=== PATIENT | male | born 1980 | race Caucasian/White ===

== ENCOUNTER 2019-05-21 16:21 | Emergency (ER) | payer BC, OTHER ==
--- NOTE | 2019-05-21 16:41 | ER Document Report ---
ED Medical Screen (RME) - General Chief Complaint: Dizziness Stated Complaint: HEADACHE,DIZZINESS Time Seen by Provider: 05/21/19 16:35 Primary Care Provider: REZA ALFONSO MD [Primary Care Provider] - Follow up as needed Mode of Arrival: Ambulatory Information source: Patient Notes: Patient presents complaining of headache pain for the past week with dizziness. Patient does complain of some nausea. Patient states that he has had some chest tightness for the past 2 days with shortness of breath as well. Patient does report elevated blood pressure although does not take any medication for this. Patient was seen in urgent care last week and diagnosed with vertigo and given a prescription for meclizine. Patient additionally reports falling off of an excavator from a height of about 4 foot. Patient states the fall occurred about 3 weeks ago. I have greeted and performed a rapid initial assessment of this patient. A comprehensive ED assessment and evaluation of the patient, analysis of test results and completion of the medical decision making process will be conducted by additional ED providers. Physical Exam - Vital signs Vitals: Temp Pulse Resp BP Pulse Ox 97.6 F 95 24 H 182/104 H 94 05/21/19 16:23 05/21/19 16:23 05/21/19 16:23 05/21/19 16:23 05/21/19 16:23 - Neurological Neuro grossly intact: Yes Cognition: Normal Eek Coma Scale Eye Opening: Spontaneous Eek Coma Scale Verbal: Oriented Lani Coma Scale Motor: Obeys Commands Eek Coma Scale Total: 15 Speech: Normal. No: Dysarthria Course - Vital Signs Vital signs: Temp Pulse Resp BP Pulse Ox 97.6 F 95 24 H 182/104 H 94 05/21/19 16:23 05/21/19 16:23 05/21/19 16:23 05/21/19 16:23 05/21/19 16:23 Doctor's Discharge - Discharge Referrals: REZA ALFONSO MD [Primary Care Provider] - Follow up as needed
--- NOTE | 2019-05-21 17:05 | RADIOLOGY REPORT (SQ) ---
EXAM DESCRIPTION: CHEST 2 VIEWS COMPLETED DATE/TIME: 05/21/2019 4:56 pm REASON FOR STUDY: cp, sob, dizzy COMPARISON: None. EXAM PARAMETERS: NUMBER OF VIEWS: two views TECHNIQUE: Digital Frontal and Lateral radiographic views of the chest acquired. RADIATION DOSE: NA LIMITATIONS: none FINDINGS: LUNGS AND PLEURA: No opacities, masses or pneumothorax. No pleural effusion. MEDIASTINUM AND HILAR STRUCTURES: No masses or contour abnormalities. HEART AND VASCULAR STRUCTURES: Heart normal size. No evidence for failure. BONES: No acute findings. HARDWARE: None in the chest. OTHER: No other significant finding. IMPRESSION: NO ACUTE RADIOGRAPHIC FINDING IN THE CHEST. TECHNICAL DOCUMENTATION: JOB ID: [id number] [employer]- All Rights Reserved Reading location - IP/workstation name: [email or web address]
[2019-05-21 17:24] LABS: ABSOLUTE BASOPHILS # (AUTO) 0.1 10^3/uL (0.0-0.2); ABSOLUTE EOSINOPHILS # (AUTO) 0.4 10^3/uL (0.0-0.6); ABSOLUTE LYMPHOCYTES (AUTO) 4.3 10^3/uL (0.5-4.7); EOSINOPHILS % (AUTO) 2.8 % (0-6); HEMATOCRIT 45.6 % (37.9-51.0); HEMOGLOBIN 15.5 g/dL (13.5-17.0); LYMPHOCYTES % (AUTO) 33.8 % (13-45); MEAN CORPUSCULAR HEMOGLOBIN 30.6 pg (27.0-33.4); MEAN CORPUSCULAR HGB CONC 33.9 g/dL (32.0-36.0); MEAN CORPUSCULAR VOLUME 90 fl (80-97); PLATELET COUNT 342 10^3/uL (150-450); RED BLOOD COUNT 5.06 10^6/uL (4.35-5.55); RED CELL DISTRIBUTION WIDTH 13.5 % (11.5-14.0); SEGMENTED NEUTROPHILS % (AUTO) 54.4 % (42-78); TOTAL CELLS COUNTED % (AUTO) 100 %; WHITE BLOOD COUNT 12.8 10^3/uL (4.0-10.5)
[2019-05-21 17:29] LABS: APPEARANCE,URINE SLIGHTLY-CLOUDY; BILIRUBIN,URINE NEGATIVE (NEGATIVE); COLOR,URINE YELLOW; GLUCOSE, URINE NEGATIVE (NEGATIVE); KETONES,URINE NEGATIVE (NEGATIVE); LEUKOCYTE ESTERASE,URINE NEGATIVE (NEGATIVE); NITRITE,URINE NEGATIVE (NEGATIVE); PROTEIN,URINE 30 mg/dL (NEGATIVE); URINE SPECIFIC GRAVITY 1.025
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
[2019-05-21 17:47] LABS: ALBUMIN 4.4 g/dL (3.5-5.0); ALKALINE PHOSPHATASE 79 U/L (38-126); ANION GAP 11 (5-19); ASPARTATE AMINO TRANSFERASE 38 U/L (17-59); BILIRUBIN,DIRECT 0.1 mg/dL (0.0-0.4); BILIRUBIN,TOTAL 0.6 mg/dL (0.2-1.3); BLOOD UREA NITROGEN 16 mg/dL (7-20); CALCIUM 9.5 mg/dL (8.4-10.2); CARBON DIOXIDE 27 mmol/L (22-30); CHLORIDE 105 mmol/L (98-107); GLUCOSE 94 mg/dL (75-110); POTASSIUM 4.5 mmol/L (3.6-5.0); TOTAL PROTEIN 7.6 g/dL (6.3-8.2)
[2019-05-21 17:56] LABS: NT PRO BNP 284 pg/mL (<125)
[2019-05-21 17:57] LABS: TROPONIN I < 0.012 ng/mL
--- NOTE | 2019-05-21 19:31 | RADIOLOGY REPORT (SQ) ---
EXAM DESCRIPTION: CT HEAD WITHOUT COMPLETED DATE/TIME: 05/21/2019 7:21 pm REASON FOR STUDY: [place], HTN COMPARISON: None. TECHNIQUE: Axial images acquired through the brain without intravenous contrast. Images reviewed wi th bone, brain and subdural windows. Additional sagittal and coronal reconstructions were generated. Images stored on PACS. All CT scanners at this facility use dose modulation, iterative reconstruction, and/or weight based d osing when appropriate to reduce radiation dose to as low as reasonably achievable (ALARA). [facility]: Dose Right [facility]: CareDose [facility]: Dose Right [facility]: Teradose 4D [facility]: Smart TEXbase RADIATION DOSE: CT Rad equipment meets quality standard of care and radiation dose reduction techniq ues were employed. CTDIvol: 53.2 mGy. DLP: 964 mGy-cm. mGy. LIMITATIONS: None. FINDINGS: VENTRICLES: Normal size and contour. CEREBRUM: No masses. No hemorrhage. No midline shift. No evidence for acute infarction. Normal gra y/white matter differentiation. No areas of low density in the white matter. CEREBELLUM: No masses. No hemorrhage. No alteration of density. No evidence for acute infarction. EXTRAAXIAL SPACES: No fluid collections. No masses. ORBITS AND GLOBE: No intra- or extraconal masses. Normal contour of globe without masses. CALVARIUM: No fracture. PARANASAL SINUSES: No fluid or mucosal thickening. SOFT TISSUES: No mass or hematoma. OTHER: No other significant finding. IMPRESSION: NORMAL BRAIN CT WITHOUT CONTRAST. EVIDENCE OF ACUTE STROKE: NO. COMMENT: Quality ID # [id number]: Final reports with documentation of one or more dose reduction techniques (e.g., Automated exposure control, adjustment of the mA and/or kV according to patient size, use of iterative reconstruction technique) TECHNICAL DOCUMENTATION: JOB ID: [id number] [employer]- All Rights Reserved Reading location - IP/workstation name: [facility]
[2019-05-21 20:09] VITALS: BP 162/102
--- NOTE | 2019-05-21 23:39 | EKG REPORT ---
SEVERITY:- ABNORMAL ECG - SINUS TACHYCARDIA LEFT BUNDLE BRANCH BLOCK : Confirmed by: Mathieu Bruno 21-May-2019 23:38:46
== END 2019-05-21 19:58 | disposition home or self-care (01) ==
LOC: ER 16:21
DX: F07.81 Postconcussional syndrome (principal); R42 Dizziness and giddiness; R51 Headache; S90.512A Abrasion, left ankle, initial encounter; W19.XXXA Unspecified fall, initial encounter; Y93.39 Activity, other involving climbing, rappelling and jumping off; E66.01 Morbid (severe) obesity due to excess calories; G47.33 Obstructive sleep apnea (adult) (pediatric); R03.0 Elevated blood-pressure reading, without diagnosis of hypertension; R06.09 Other forms of dyspnea; I44.7 Left bundle-branch block, unspecified; Z79.899 Other long term (current) drug therapy; Z79.1 Long term (current) use of non-steroidal anti-inflammatories (NSAID)
CPT/HCPCS: 36415; 70450; 71046; 80053; 81001; 83880; 84484; 85025; 93005; 93010; 99284

== ENCOUNTER 2019-06-29 00:22 | Emergency (ER) | payer SELFPAY ==
--- NOTE | 2019-06-29 02:50 | RADIOLOGY REPORT (SQ) ---
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 COMPARISON: None. FINDINGS: No acute fracture or dislocation is seen. The joint spaces are preserved. No radiopaque foreign body is identified. The surrounding soft tissues are swollen. IMPRESSION: Diffuse foot swelling without fracture or foreign body.
--- NOTE | 2019-06-29 02:52 | RADIOLOGY REPORT (SQ) ---
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 COMPARISON: None. FINDINGS: No acute fracture or dislocation is seen. The joint spaces are preserved. No radiopaque foreign body is identified. The surrounding soft tissues are diffusely swollen. IMPRESSION: Diffuse ankle swelling without fracture or malalignment.
--- NOTE | 2019-06-29 03:29 | ER Document Report ---
ED Extremity Problem, Lower - General Chief Complaint: Foot Injury Stated Complaint: LEFT FOOT INJURY Time Seen by Provider: 06/29/19 02:46 Mode of Arrival: Ambulatory Information source: Patient TRAVEL OUTSIDE OF THE [place] IN LAST 30 DAYS: No - HPI Notes: Patient states he was playing with a 6-year-old child when he planted his foot and felt a sudden sharp pain in the left foot. He states his pain is about the ankle and the foot. It is worse with bearing weight and better with rest. It does show radiate up his left leg. It is sharp and severe. It is constant but waxes and wanes in intensity. He states he also heard a loud pop when the pain started. He denies any other injuries. - Related Data Allergies/Adverse Reactions: No Known Allergies Allergy (Unverified 05/21/19 18:17) Home Medications: prilosec qday Past Medical History - General Information source: Patient - Social History Smoking Status: Never Smoker Frequency of alcohol use: None Drug Abuse: None Family History: Reviewed & Not Pertinent Patient has suicidal ideation: No Patient has homicidal ideation: No - Past Medical History Cardiac Medical History: Reports: Hx Hypercholesterolemia Past Surgical History: Reports: Hx Tonsillectomy Review of Systems - Review of Systems Constitutional: denies: Chills, Fever Cardiovascular: denies: Chest pain, Palpitations Respiratory: denies: Cough, Short of breath -: Yes All other systems reviewed and negative Physical Exam - Vital signs Vitals: Temp Pulse Resp BP Pulse Ox 97.6 F 100 20 122/71 92 06/29/19 00:33 06/29/19 00:33 06/29/19 00:33 06/29/19 00:33 06/29/19 00:33 Interpretation: Normal - General General appearance: Appears well, Alert - HEENT Head: Normocephalic, Atraumatic Eyes: Normal Pupils: PERRL - Respiratory Respiratory status: No respiratory distress Chest status: Nontender Breath sounds: Normal Chest palpation: Normal - Cardiovascular Rhythm: Regular Heart sounds: Normal auscultation Murmur: No - Abdominal Inspection: Normal Distension: No distension Bowel sounds: Normal Tenderness: Nontender Organomegaly: No organomegaly - Back Back: Normal, Nontender - Extremities General upper extremity: Normal inspection, Nontender, Normal color, Normal ROM, Normal temperature General lower extremity: Tender - Left foot and ankle have some diffuse swelling. He is also tender diffusely about the foot and left ankle although the most significant pain appears to be with palpation of the midfoot between the first and second metatarsals. He has good capillary refill in all toes of the left foot. He has a good dorsalis pedis pulse on the left.. No: Asif's sign - Neurological Neuro grossly intact: Yes Cognition: Normal Orientation: AAOx4 Bang[place] Coma Scale Eye Opening: Spontaneous Lani Coma Scale Verbal: Oriented [place] Coma Scale Motor: Obeys Commands Lani Coma Scale Total: 15 Speech: Normal Motor strength normal: LUE, RUE, LLE, RLE Sensory: Normal - Psychological Associated symptoms: Normal affect, Normal mood - Skin Skin Temperature: Warm Skin Moisture: Dry Skin Color: Normal Course - Re-evaluation Re-evalutation: 06/29/19 03:26 Patient has no evidence of fracture. It appears he may have a sprain of the midfoot and patient will refer to orthopedics. - Vital Signs Vital signs: Temp Pulse Resp BP Pulse Ox 97.6 F 100 20 122/71 92 06/29/19 00:33 06/29/19 00:33 06/29/19 00:33 06/29/19 00:33 06/29/19 00:33 - Diagnostic Test Radiology reviewed: Image reviewed, Reports reviewed Procedures - Immobilization Left Foot Time completed: 03:27 Pre-Proc Neuro Vasc Exam: Normal Immobilizer type: Post-op shoe Performed by: ROSE Post-Proc Neuro Vasc Exam: Normal Alignment checked and good: Yes Discharge - Discharge Clinical Impression: Sprain of foot, unspecified site Qualifiers: Encounter type: initial encounter Laterality: left Qualified Code(s): S93.602A - Unspecified sprain of left foot, initial encounter Condition: Stable Disposition: HOME, SELF-CARE Instructions: Ice Packs ([facility]), Oral Narcotic Medication ([facility]), Sprain ([facility]) Additional Instructions: Please call Dr. Blake as soon as possible to arrange follow-up Prescriptions: Hydrocodone/Acetaminophen [[place] 5-325 mg Tablet] 1 tab PO Q6 PRN 3 Days #12 tablet PRN Reason: Forms: Return to Work Referrals: KALI BLAKE JR, [ACTIVE PROVISIONAL STAFF] - Follow up in 1 week
[2019-06-29] MEDS ORDERED: HYDROCODONE/ACETAMINOPHEN 5-325 MG (6 TAB/ER DISP) PO PRN (03:30)
[2019-06-29 03:51] VITALS: BP 141/92
== END 2019-06-29 03:48 | disposition home or self-care (01) ==
LOC: ER 00:22
DX: S93.602A Unspecified sprain of left foot, initial encounter (principal); X58.XXXA Exposure to other specified factors, initial encounter; E78.00 Pure hypercholesterolemia, unspecified
CPT/HCPCS: 99283

== ENCOUNTER 2019-08-17 03:25 | Inpatient (IN) | payer SELFPAY ==
[2019-08-17] MEDS ORDERED: IPRATROPIUM/ALBUTEROL 0.5-2.5 MG/3 ML AMPUL NEB ONE (03:52)
[2019-08-17 05:41] LABS: ABSOLUTE BASOPHILS # (AUTO) 0.1 10^3/uL (0.0-0.2); ABSOLUTE EOSINOPHILS # (AUTO) 0.3 10^3/uL (0.0-0.6); ABSOLUTE LYMPHOCYTES (AUTO) 3.7 10^3/uL (0.5-4.7); ABSOLUTE MONOCYTES (AUTO) 0.7 10^3/uL (0.1-1.4); ABSOLUTE NEUT (AUTO) 4.7 10^3/uL (1.7-8.2); EOSINOPHILS % (AUTO) 3.5 % (0-6); HEMATOCRIT 41.3 % (37.9-51.0); HEMOGLOBIN 14.1 g/dL (13.5-17.0); LYMPHOCYTES % (AUTO) 38.8 % (13-45); MEAN CORPUSCULAR HEMOGLOBIN 31.1 pg (27.0-33.4); MEAN CORPUSCULAR HGB CONC 34.1 g/dL (32.0-36.0); MEAN CORPUSCULAR VOLUME 91 fl (80-97); MONOCYTES % (AUTO) 7.3 % (3-13); PLATELET COUNT 285 10^3/uL (150-450); RED BLOOD COUNT 4.53 10^6/uL (4.35-5.55); RED CELL DISTRIBUTION WIDTH 14.4 % (11.5-14.0); SEGMENTED NEUTROPHILS % (AUTO) 49.4 % (42-78); TOTAL CELLS COUNTED % (AUTO) 100 %; WHITE BLOOD COUNT 9.4 10^3/uL (4.0-10.5)
[2019-08-17 05:56] LABS: ALBUMIN 3.8 g/dL (3.5-5.0); ALKALINE PHOSPHATASE 67 U/L (38-126); ANION GAP 8 (5-19); ASPARTATE AMINO TRANSFERASE 36 U/L (17-59); BILIRUBIN,TOTAL 0.6 mg/dL (0.2-1.3); BLOOD UREA NITROGEN 16 mg/dL (7-20); CALCIUM 9.2 mg/dL (8.4-10.2); CARBON DIOXIDE 26 mmol/L (22-30); CHLORIDE 105 mmol/L (98-107); GLUCOSE 111 mg/dL (75-110); POTASSIUM 4.1 mmol/L (3.6-5.0); TOTAL PROTEIN 6.4 g/dL (6.3-8.2)
--- NOTE | 2019-08-17 06:01 | RADIOLOGY REPORT (SQ) ---
EXAM DESCRIPTION: XR CHEST 2 VIEWS COMPLETED DATE/TME: 08/17/2019 00:00 CLINICAL HISTORY: SOB COMPARISON: 05/21/2019 FINDINGS: Frontal and lateral views of the chest. Cardiomediastinal silhouette: Normal size and contour. Lungs: Bilateral perihilar interstitial opacities. No pneumothorax or large effusion. Stable elevation the right hemidiaphragm. Bones: Degenerative change of the spine and shoulders. Upper abdomen: No abnormality identified. IMPRESSION: 1. Bilateral perihilar interstitial opacities. These findings could be related to reactive airways disease or interstitial pneumonic process.
[2019-08-17] MEDS ORDERED: FUROSEMIDE INJ/PF 20 MG/2 ML SDV IV ONE ×2 (07:17→12:00)
[2019-08-17 08:10] LABS: TROPONIN I 0.027 ng/mL
--- NOTE | 2019-08-17 08:33 | ER Document Report ---
Entered by DEVORA LÓPEZ SCRIBE 08/17/19 0716 Acting as scribe for:TOMEKA COREA MD ED Respiratory Problem - General Chief Complaint: Shortness Of Breath Stated Complaint: DIFFICULTY BREATHING Time Seen by Provider: 08/17/19 06:56 Information source: Patient Notes: This 38-year-old male patient presents to the emergency department today with complaints of shortness of breath with a nonproductive cough. Patient states his shortness of breath becomes much worse when in a supine position or with any exertion. Patient adds that he has to use several pillows at night to sleep, but has never been diagnosed with CHF. Patient was recently prescribed an albuterol inhaler which he states somewhat helps his breathing. Patient has lower extremity swelling which he states is about at baseline for him. Pertinent PMHx/PSHx: Denies history of CHF - additional PMHx/PSHx not pertinent to this visit as recorded. PCP: none TRAVEL OUTSIDE OF THE [place] IN LAST 30 DAYS: No - Related Data Allergies/Adverse Reactions: No Known Allergies Allergy (Unverified 05/21/19 18:17) Past Medical History - General Information source: Patient, [facility] Records - Social History Smoking Status: Never Smoker Cigarette use (# per day): No Chew tobacco use (# tins/day): No Frequency of alcohol use: None Drug Abuse: None Lives with: Family Family History: Reviewed & Not Pertinent Patient has suicidal ideation: No Patient has homicidal ideation: No GI Medical History: Reports: Hx Gastroesophageal Reflux Disease, Hx Hiatal Hernia Past Surgical History: Reports: Hx Tonsillectomy Review of Systems - Review of Systems Constitutional: No symptoms reported EENT: No symptoms reported Cardiovascular: No symptoms reported Respiratory: See HPI, Cough, Short of breath Gastrointestinal: No symptoms reported Genitourinary: No symptoms reported Male Genitourinary: No symptoms reported Musculoskeletal: See HPI, Leg swelling Skin: No symptoms reported Hematologic/Lymphatic: No symptoms reported Neurological/Psychological: No symptoms reported -: Yes All other systems reviewed and negative Physical Exam - Vital signs Vitals: Temp Pulse Resp BP Pulse Ox 97.3 F 107 H 20 161/117 H 93 08/17/19 03:31 08/17/19 03:31 08/17/19 03:31 08/17/19 03:31 08/17/19 03:31 - Notes Notes: Physical Exam: General: Alert, morbidly obese. HEENT: Normocephalic. Atraumatic. PERRL. Extraocular movements intact. Oropharynx clear. Neck: Supple. Non-tender. Respiratory: Moderate respiratory distress. Saturating 100% on 5L via cannula. Rhonchi, wheezing, and rales bilaterally. Becomes very dyspneic when trying to sit up for lung auscultation. Cardiovascular: Regular rate and rhythm. Abdominal: Morbidly obese. Non-tender. No distension. Normal Bowel Sounds. Back: No gross abnormalities. Extremities: Moves all four extremities. Upper extremities: Normal inspection. Normal ROM. Lower extremities: 1+ pedal edema bilaterally. Neurological: Normal cognition. AAOx4. Normal speech. Psychological: Normal affect. Normal Mood. Skin: Warm. Dry. Normal color. Course - Re-evaluation Re-evalutation: 08/17/19 09:34 Patient has dyspnea on exertion with some lower extremity pitting edema. He has an elevated BNP and a chest x-ray that suggest pulmonary vascular congestion. - Vital Signs Vital signs: Temp Pulse Resp BP Pulse Ox 97.3 F 107 H 19 161/117 H 98 08/17/19 03:31 08/17/19 03:31 08/17/19 07:00 08/17/19 03:31 08/17/19 07:00 - Laboratory Result Diagrams: 08/17/19 05:20 08/17/19 05:20 Laboratory results interpreted by nd: 08/17/19 08/17/19 08/17/19 05:20 05:20 05:20 RDW 14.4 H Glucose 111 H NT-Pro-B Natriuret Pep 1390 H - Diagnostic Test Radiology reviewed: Image reviewed - Chest x-ray looks like pulmonary vascular congestion - EKG Interpretation by Wy EKG shows normal: Sinus rhythm, [place], Intervals, QRS Complexes, ST-T Waves Rate: Normal - 98 Rhythm: NSR [place]/QRS: LBBB When compared to previous EKG there are: No significant change - Consults Slava Salazar SECURITY RISK ANALYST Time consulted: 09:30 Consulted provider: will come to ER Discharge - Discharge Clinical Impression: Dyspnea on exertion Congestive heart failure (CHF) Qualifiers: Heart failure type: unspecified Heart failure chronicity: unspecified Qualified Code(s): I50.9 - Heart failure, unspecified High blood pressure Qualifiers: Hypertension type: essential hypertension Qualified Code(s): I10 - Essential ( primary) hypertension Condition: Stable Disposition: ADMITTED INPATIENT Admitting Provider: Mariia (Hospitalist) Unit Admitted: Telemetry I personally performed the services described in the documentation, reviewed and edited the documentation which was dictated to the scribe in my presence, and it accurately records my words and actions.
[2019-08-17] MEDS ORDERED: ONDANSETRON HCL INJ/PF 4 MG/2 ML SDV IV PRN (10:04)
[2019-08-17] MEDS ORDERED: ONDANSETRON 4 MG TAB.RAPDIS PO PRN (10:04)
[2019-08-17] MEDS ORDERED: HYDRALAZINE HCL INJ/PF 20 MG/1 ML SDV IV PRN (10:14)
--- NOTE | 2019-08-17 10:41 | PDOC H&P ---
History of Present Illness Admission Date/PCP: 08/17/19 09:39 History of Present Illness: CARLOS SRINIVASAN is a 38 year old male who comes into the emergency room with about a 5 to 6-week history of shortness of breath. She states about 5 weeks ago he went to an urgent care and they thought he had bronchitis he took some antibiotics and an inhaler he says eating getting better. He is not sleeping at night because of shortness of breath and when he does sleep he has to sleep in a sitting position. Has had a cough but it is nonproductive also he has had "tightness" in his chest. Patient states in 2008 he had a sleep apnea study performed and was told that he had obstructive sleep apnea, ever he never went on CPAP even though he was supposed to. At that time he weighed 280 pounds and now he weighs 420 pounds. Patient states that he is never been told to take high blood pressure medicine but he has been told in the past he had high blood pressure. Patient comes in now with shortness of breath that is not getting better over 6 weeks Past Medical History Cardiac Medical History: Reports: Hyperlipidema, Hypertension Pulmonary Medical History: Reports: Sleep Apnea Endocrine Medical History: Reports: Obesity GI Medical History: Reports: Gastroesophageal Reflux Disease, Hiatal Hernia Past Surgical History Past Surgical History: Reports: Tonsillectomy Social History Lives with: Family Smoking Status: Never Smoker Electronic Cigarette use?: No - Advance Directive Resuscitation Status: Full Code Family History Family History: Reviewed & Not Pertinent Parental Family History Reviewed: No Children Family History Reviewed: No Sibling(s) Family History Reviewed.: No Medication/Allergy Home Medications: Amitriptyline HCl [Elavil 10 mg Tablet] 10 mg PO QPM #30 tablet 05/21/19 Meclizine HCl [Antivert 25 mg Tablet] 25 mg PO Q4 PRN 05/21/19 Hydrocodone/Acetaminophen [[place] 5-325 mg Tablet] 1 tab PO Q6 PRN 3 Days #12 tablet 06/29/19 Allergies/Adverse Reactions: No Known Allergies Allergy (Unverified 05/21/19 18:17) Review of Systems Constitutional: ABSENT: chills, fever(s), headache(s), weight gain, weight loss Cardiovascular: PRESENT: dyspnea on exertion Respiratory: PRESENT: cough, dyspnea Neurological: ABSENT: abnormal gait, abnormal speech, confusion, dizziness, fo kar weakness, syncope Psychiatric: ABSENT: anxiety, depression, homidical ideation, suicidal ideation Physical Exam Vital Signs: Temp Pulse Resp BP Pulse Ox 97.3 F 107 H 22 H 126/90 H 96 08/17/19 03:31 08/17/19 03:31 08/17/19 09:01 08/17/19 10:01 08/17/19 10:01 Intake & Output 08/16/19 08/17/19 08/18/19 06:59 06:59 06:59 Weight 196.5 kg General appearance: PRESENT: no acute distress, other - Lying in bed speaking in full sentences Respiratory exam: PRESENT: rales - Both bases Cardiovascular exam: PRESENT: RRR. ABSENT: diastolic murmur, rubs, systolic murmur GI/Abdominal exam: PRESENT: normal bowel sounds, soft. ABSENT: distended, guarding, mass, organolmegaly, rebound, tenderness Extremities exam: PRESENT: +1 edema Neurological exam: PRESENT: alert, awake, oriented to person, oriented to place, oriented to time, oriented to situation, CN II-XII grossly intact. ABSENT: motor sensory deficit Psychiatric exam: PRESENT: appropriate affect, normal mood, other - Pleasant. ABSENT: homicidal ideation, suicidal ideation Results Laboratory Results: 08/17/19 05:20 08/17/19 05:20 08/17/19 08/17/19 05:20 05:20 WBC 9.4 RBC 4.53 Hgb 14.1 Hct 41.3 MCV 91 MCH 31.1 MCHC 34.1 RDW 14.4 H Plt Count 285 Seg Neutrophils % 49.4 Sodium 139.0 Potassium 4.1 Chloride 105 Carbon Dioxide 26 Anion Gap 8 BUN 16 Creatinine 0.87 Est GFR ( Amer) > 60 Glucose 111 H Calcium 9.2 Total Bilirubin 0.6 AST 36 Alkaline Phosphatase 67 Total Protein 6.4 Albumin 3.8 08/17/19 08/17/19 05:20 05:20 Creatine Kinase 113 Troponin I 0.027 NT-Pro-B Natriuret Pep 1390 H Impressions: Chest X-Ray 08/17/19 00:00 IMPRESSION: 1. Bilateral perihilar interstitial opacities. These findings could be related to reactive airways disease or interstitial pneumonic process. Assessment and Plan - Diagnosis (1) Morbid obesity Is this a current diagnosis for this admission?: Yes (2) Obstructive sleep apnea Is this a current diagnosis for this admission?: Yes (3) Congestive heart failure (CHF) Qualifiers: Heart failure type: unspecified Heart failure chronicity: unspecified Qualified Code(s): I50.9 - Heart failure, unspecified Is this a current diagnosis for this admission?: Yes (4) Dyspnea on exertion Is this a current diagnosis for this admission?: Yes (5) High blood pressure Qualifiers: Hypertension type: essential hypertension Qualified Code(s): I10 - Essential (primary) hypertension Is this a current diagnosis for this admission?: Yes - Plan Summary Summary: She has been admitted for diuretics, echocardiogram, thyroid functions. No need to do a dietary consult because patient is aware of his calories and what he is eating and so forth. We start him on antihypertensives as needed. Possibly 2 days of hospitalization Patient is medically stable in no distress - Time Time Spent with patient: 35 or more minutes
[2019-08-17 11:26] LABS: FREE T3 3.47 pg/mL (2.77-5.27); FREE T4 (FREE THYROXINE) 1.12 ng/dL (0.78-2.19)
[2019-08-17] MEDS: ENOXAPARIN SODIUM INJ 40 MG/0.4 ML DISP.SYRIN SUBCUT SCH (11:40)
--- NOTE | 2019-08-17 11:55 | EKG REPORT ---
SEVERITY:- ABNORMAL ECG - SINUS RHYTHM LEFT BUNDLE BRANCH BLOCK : Confirmed by: Mathieu Bruno 17-Aug-2019 11:55:26
[2019-08-17] MEDS: IPRATROPIUM/ALBUTEROL 0.5-2.5 MG/3 ML AMPUL NEB PRN (18:41)
[2019-08-17 19:01] LABS: APPEARANCE,URINE CLEAR; BILIRUBIN,URINE NEGATIVE (NEGATIVE); COLOR,URINE YELLOW; GLUCOSE, URINE NEGATIVE (NEGATIVE); KETONES,URINE NEGATIVE (NEGATIVE); LEUKOCYTE ESTERASE,URINE NEGATIVE (NEGATIVE); NITRITE,URINE NEGATIVE (NEGATIVE); PROTEIN,URINE NEGATIVE (NEGATIVE); URINE SPECIFIC GRAVITY 1.009; UROBILINOGEN,URINE NEGATIVE mg/dL (<2.0)
[2019-08-17] MEDS: OXYCODONE-ACETAMINOPHEN 5-325 MG TABLET PO PRN (19:09)
[2019-08-17] MEDS ORDERED: OXYMETAZOLINE HCL 0.05% NASAL SPRAY 15 ML BOTTLE ONE (21:25)
[2019-08-17] MEDS: FUROSEMIDE INJ/PF 40 MG/4 ML SDV IV SCH (21:50)
[2019-08-17] MEDS: FAMOTIDINE 20 MG TABLET PO SCH (21:50)
[2019-08-17] MEDS: OXYMETAZOLINE HCL 0.05% NASAL SPRAY 15 ML BOTTLE NASL SCH (22:00)
[2019-08-18] MEDS: OXYCODONE-ACETAMINOPHEN 5-325 MG TABLET PO PRN ×2 (01:16→11:16)
[2019-08-18 06:54] LABS: HEMATOCRIT 40.7 % (37.9-51.0); HEMOGLOBIN 14.2 g/dL (13.5-17.0); MEAN CORPUSCULAR HEMOGLOBIN 31.7 pg (27.0-33.4); MEAN CORPUSCULAR HGB CONC 34.8 g/dL (32.0-36.0); MEAN CORPUSCULAR VOLUME 91 fl (80-97); PLATELET COUNT 287 10^3/uL (150-450); RED BLOOD COUNT 4.48 10^6/uL (4.35-5.55); RED CELL DISTRIBUTION WIDTH 14.1 % (11.5-14.0); WHITE BLOOD COUNT 9.3 10^3/uL (4.0-10.5)
[2019-08-18 07:18] LABS: ANION GAP 8 (5-19); BLOOD UREA NITROGEN 16 mg/dL (7-20); CALCIUM 9.2 mg/dL (8.4-10.2); CARBON DIOXIDE 30 mmol/L (22-30); CHLORIDE 102 mmol/L (98-107); GLUCOSE 114 mg/dL (75-110); POTASSIUM 4.2 mmol/L (3.6-5.0)
[2019-08-18] MEDS: ACETAMINOPHEN 325 MG TABLET PO PRN (08:26)
[2019-08-18] MEDS: FUROSEMIDE INJ/PF 40 MG/4 ML SDV IV SCH ×2 (10:54→22:09)
[2019-08-18] MEDS: ENOXAPARIN SODIUM INJ 40 MG/0.4 ML DISP.SYRIN SUBCUT SCH (10:55)
[2019-08-18] MEDS: FAMOTIDINE 20 MG TABLET PO SCH ×2 (10:56→22:09)
--- NOTE | 2019-08-18 14:58 | PDOC PROGRESS REPORT ---
Subjective Progress Note for:: 08/18/19 Reason For Visit: NEW ONSET CHF,OBESITY,HYPERTENSION,STRUCT OF SLEEP 08/18/2019 She admitted for morbid obesity, new onset CHF, hypertension, COURTNEY Physical Exam Vital Signs: Temp Pulse Resp BP Pulse Ox 97.6 F 95 18 123/90 H 92 08/18/19 12:00 08/18/19 12:00 08/18/19 12:00 08/18/19 12:00 08/18/19 12:00 Intake & Output 08/17/19 08/18/19 08/19/19 06:59 06:59 06:59 Intake Total 596 Output Total 4950 Balance -4354 Weight 196.5 kg 189.9 kg General appearance: PRESENT: no acute distress Respiratory exam: PRESENT: clear to auscultation abraham. ABSENT: rales, rhonchi, wheezes Cardiovascular exam: PRESENT: RRR. ABSENT: diastolic murmur, rubs, systolic murmur Neurological exam: PRESENT: alert, awake, oriented to person, oriented to place, oriented to time, oriented to situation, CN II-XII grossly intact. ABSENT: motor sensory deficit Psychiatric exam: PRESENT: appropriate affect, normal mood. ABSENT: homicidal ideation, suicidal ideation Results Laboratory Results: 08/18/19 06:18 08/18/19 06:18 08/17/19 08/18/19 08/18/19 18:27 06:18 06:18 WBC 9.3 RBC 4.48 Hgb 14.2 Hct 40.7 MCV 91 MCH 31.7 MCHC 34.8 RDW 14.1 H Plt Count 287 Sodium 140.4 Potassium 4.2 Chloride 102 Carbon Dioxide 30 Anion Gap 8 BUN 16 Creatinine 0.89 Est GFR ( Amer) > 60 Glucose 114 H Calcium 9.2 Magnesium 2.2 Urine Color YELLOW Urine Appearance CLEAR Urine pH 6.0 Ur Specific [place] 1.009 Urine Protein NEGATIVE Urine Glucose (UA) NEGATIVE Urine Ketones NEGATIVE Urine Blood SMALL H Urine Nitrite NEGATIVE Ur Leukocyte Esterase NEGATIVE Urine WBC (Auto) 1 Urine RBC (Auto) 1 08/17/19 08/17/19 05:20 05:20 Creatine Kinase 113 Troponin I 0.027 NT-Pro-B Natriuret Pep 1390 H Impressions: Chest X-Ray 08/17/19 00:00 IMPRESSION: 1. Bilateral perihilar interstitial opacities. These findings could be related to reactive airways disease or interstitial pneumonic process. Assessment and Plan - Diagnosis (1) Morbid obesity Is this a current diagnosis for this admission?: Yes (2) Obstructive sleep apnea Is this a current diagnosis for this admission?: Yes (3) Congestive heart failure (CHF) Qualifiers: Heart failure type: unspecified Heart failure chronicity: unspecified Qualified Code(s): I50.9 - Heart failure, unspecified Is this a current diagnosis for this admission?: Yes (4) Dyspnea on exertion Is this a current diagnosis for this admission?: Yes (5) High blood pressure Qualifiers: Hypertension type: essential hypertension Qualified Code(s): I10 - Essential (primary) hypertension Is this a current diagnosis for this admission?: Yes - Plan Summary Summary: he has been admitted for diuretics, echocardiogram, thyroid functions. No need to do a dietary consult because patient is aware of his calories and what he is eating and so forth. Will start him on antihypertensives as needed. Possibly 2 days of hospitalization Patient is medically stable in no distress 08/18/2019 Patient's systolics have remained slightly elevated 86 and 90 Patient's troponin slightly elevated probably due to demand, BNP also slightly elevated 1390,. TSH slightly elevated 6.4 however free T4 and free T3 are normal. I would almost be tempted to try this patient on a low dose of Synthroid 0.05 for 4 months to see if that would start his metabolism and possibly weight loss, however I am not sure if anyone would continue this medicine. hemoglobin A1c is normal 5.4 Patient is feeling better with less shortness of breath. Cardiology has been consulted to address patient's new onset of CHF. Patient currently receiving Lasix 40 mg IV every 12 hours Patient medically stable with new onset CHF, 10-year history of obstructive sleep apnea with no treatment, hypertension for years but no medications. - Time Time Spent with patient: 35 or more minutes
--- NOTE | 2019-08-18 18:32 | XCELERA REPORT ---
[address] [address] Transthoracic Echocardiogram Report Name: CARLOS SRINIVASAN Age: 38 yrs Gender: Male : 1980 Patient Status: [facility] Date: 08/18/2019 11:40 AM Height: 72 in Weight: 433 lb BSA: 3.0 m2 Procedure: A two-dimensional transthoracic echocardiogram with color flow and Doppler was performed. The study was technically difficult with many images being suboptimal in quality. The study was technically limited with all images being suboptimal in quality. Reason For Study: chf History: CHF. Ordering Physician: TODD CHOW Performed By: Prabha Bonilla Interpretation Summary The left ventricle is moderately dilated. There is mild to moderate concentric left ventricular hypertrophy. LV EF is 25% TO 30% Left ventricular systolic function is severely reduced. LV diastolic function could not be adequately assessed. There is severe global hypokinesis of the left ventricle. Septal motion is consistent with conduction abnormality nO THROMBUS.cANNOT ASSESS asd,vsd , OR pfo The right ventricle is moderately dilated. Right atrium not well visualized secondary to technical limitations The left atrium is moderately dilated. There is no evidence of mitral valve prolapse. There is no vegetation seen on the mitral valve. There is no mitral valve stenosis. There is a trace amount of mitral regurgitation There is no aortic valvular vegetation. There is no aortic valve stenosis There is no LVOT obstruction. No aortic regurgitation is present. There is no tricuspid valve prolapse. There is no tricuspid valve vegetation. There is no tricuspid stenosis. There is a trace amount of tricuspid regurgitation There is mild pulmonary hypertension by echo RVSP is 32 to 37 mm of Hg , with RA mean of 5 to 10. There is no pulmonic valvular stenosis. There is a trace amount of pulmonic regurgitation The aortic root is normal size. The inferior vena cava appeared normal and decreased > 50% with respiration (RAP 5-10 mmHg) There is no pericardial effusion. MMode/2D Measurements & Calculations RVDd: 4.0 cm LVIDd: 6.7 cm FS: 15.2 % Ao root diam: 3.1 cm IVSd: 1.3 cm LVIDs: 5.7 cm EDV(Teich): 232.5 ml Ao root area: 7.8 cm2 LVPWd: 1.3 cm ESV(Teich): 159.6 ml LA dimension: 4.5 cm EF(Teich): 31.4 % Doppler Measurements & Calculations MV E max alexus: MV P1/2t max alexus: Ao V2 max: LV V1 max P.3 cm/sec 170.8 cm/sec 132.6 cm/sec 4.4 mmHg MV A max alexus: MV P1/2t: 35.9 msec Ao max PG: LV V1 max: 52.7 cm/sec MVA(P1/2t): 6.1 cm2 7.0 mmHg 104.6 cm/sec MV E/A: 3.2 MV dec slope: 1393 cm/sec2 MV dec time: 0.13 sec PA V2 max: PI end-d alexus: TR max alexus: MV P1/2t-pr_phl: 91.3 cm/sec 165.1 cm/sec 259.3 cm/sec 38.2 msec PA max P.3 mmHg TR max P.9 mmHg Left Ventricle The left ventricle is moderately dilated. There is mild to moderate concentric left ventricular hypertrophy. LV EF is 25% TO 30%. Left ventricular systolic function is severely reduced. LV diastolic function could not be adequately assessed. There is severe global hypokinesis of the left ventricle. Septal motion is consistent with conduction abnormality. nO THROMBUS.cANNOT ASSESS asd,vsd , OR pfo. Right Ventricle The right ventricle is moderately dilated. The right ventricle is not well visualized secondary to technical limitations. Atria Right atrium not well visualized secondary to technical limitations. The left atrium is moderately dilated. Mitral Valve There is no evidence of mitral valve prolapse. There is no vegetation seen on the mitral valve. There is no mitral valve stenosis. There is a trace amount of mitral regurgitation. Aortic Valve There is no aortic valvular vegetation. There is no aortic valve stenosis. There is no LVOT obstruction. No aortic regurgitation is present. Tricuspid Valve There is no tricuspid valve prolapse. There is no tricuspid valve vegetation. There is no tricuspid stenosis. There is a trace amount of tricuspid regurgitation. There is mild pulmonary hypertension by echo. RVSP is 32 to 37 mm of Hg , with RA mean of 5 to 10. Pulmonic Valve There is no pulmonic valvular stenosis. There is a trace amount of pulmonic regurgitation. Great Vessels The aortic root is normal size. The inferior vena cava appeared normal and decreased > 50% with respiration (RAP 5-10 mmHg). Effusions There is no pericardial effusion. : TODD CHOW Lakshmi
--- NOTE | 2019-08-18 19:11 | PDOC CONSULTATION ---
Consultation-Blank Consultation: CARDIOLOGY CONSULTATION BY Dr. Glenys Obrien on 08/18/2019. Patient seen at 1 PM on 08/18/2019. 60 minutes spent as patient more than 50% of time spent in direct patient care. REASON FOR CONSULTATION: Acute on chronic systolic heart failure. CONSULT REQUESTING PHYSICIAN: Mr. Oliver Salazar, [facility], [facility] HISTORY OF PRESENT ILLNESS Current Medications Generic Name Dose Route Start Last Admin Trade Name Freq PRN Reason Stop Dose Admin Acetaminophen 650 mg 08/17/19 10:04 08/19/19 00:32 Tylenol 325 Mg Tablet PO 09/16/19 10:03 650 mg Q4HP PRN Administration FOR HEADACHE OR PAIN Albuterol/Ipratropium 3 ml 08/17/19 10:04 08/18/19 22:29 Duoneb 3 Ml Ampul NEB 09/16/19 10:03 3 ml RTQ4HP PRN Administration SHORTNESS OF BREATH Enoxaparin Sodium 40 mg 08/17/19 11:00 08/18/19 10:55 Lovenox Inj 40 Mg/0.4 Ml Disp.Syrin SUBCUT 09/16/19 10:59 40 mg DAILY AUSTEN Administration Famotidine 20 mg 08/17/19 22:00 08/18/19 22:09 Pepcid 20 Mg Tablet PO 09/16/19 21:59 20 mg Q12 AUSTEN Administration Furosemide 40 mg 08/17/19 22:00 08/18/19 22:09 Lasix Inj/Pf 40 Mg/4 Ml Sdv IV 09/16/19 21:59 40 mg Q12 AUSTEN Administration Hydralazine HCl 20 mg 08/17/19 10:14 08/18/19 01:11 Apresoline Inj/Pf 20 Mg/1 Ml Sdv IV 09/16/19 10:13 20 mg Q4HP PRN Administration Give For Sbp > 160/ Dbp > 90 Lisinopril 5 mg 08/18/19 22:00 08/18/19 22:18 Prinivil 5 Mg Tablet PO 09/17/19 21:59 5 mg Q12 AUSTEN Administration Metoprolol Succinate 25 mg 08/18/19 22:00 08/18/19 22:18 Toprol Xl 25 Mg Tab.Sr PO 09/17/19 21:59 25 mg Q12 AUSTEN Administration Ondansetron HCl 4 mg 08/17/19 10:04 Zofran Odt 4 Mg Tablet PO 09/16/19 10:03 Q6HP PRN FOR NAUSEA/VOMITING Ondansetron HCl 4 mg 08/17/19 10:04 Zofran Inj/Pf 4 Mg/2 Ml Sdv IV 09/16/19 10:03 Q6HP PRN FOR NAUSEA/VOMITING Oxycodone/Acetaminophen 1 tab 08/17/19 10:04 08/18/19 11:16 Percocet 5-325 Mg Tablet PO 08/24/19 10:03 1 tab Q6HP PRN Administration FOR PAIN Oxymetazoline HCl 1 spray 08/17/19 22:00 08/18/19 22:10 Afrin 0.05% Nasal [place] 15 Ml Bottle NASL 09/16/19 21:59 1 spr QHS AUSTEN Administration Discontinued Medications Generic Name Dose Route Start Last Admin Trade Name Freq PRN Reason Stop Dose Admin Albuterol/Ipratropium 3 ml 08/17/19 03:52 08/17/19 04:45 Duoneb 3 Ml Ampul NEB 08/17/19 03:53 3 ml NOW ONE Administration Furosemide 20 mg 08/17/19 07:17 08/17/19 08:05 Lasix Inj/Pf 20 Mg/2 Ml Sdv IV 08/17/19 07:18 20 mg NOW ONE Administration Furosemide 20 mg 08/17/19 12:00 08/17/19 11:40 Lasix Inj/Pf 20 Mg/2 Ml Sdv IV 08/17/19 12:01 20 mg NOW ONE Administration Oxymetazoline HCl Confirm 08/17/19 21:25 08/17/19 22:00 Afrin 0.05% Nasal [place] 15 Ml Bottle Administered 08/17/19 21:26 Not Given Dose 30 spray .ROUTE .STK-MED ONE PHYSICAL EXAMINATION: The patient is morbidly obese. He is in mild no acute distress. But the patient does have orthopnea and is in a reclining chair. Selected Entries 08/18/19 12:00 Temperature 97.6 F Temperature Oral Source Pulse Rate 95 Respiratory 18 Rate Blood Pressure 123/90 H [Right] Blood Pressure 101 Mean [Right] Blood Pressure Supine Position [Right ] O2 Sat by Pulse 92 Oximetry Oxygen Delivery Room Air Method ( includes room air) HEAD: Is atraumatic. Normocephalic. EYES: Pupils are equal round regular reactive light accommodation. Extraocular movements are normal. There is no conjunctival pallor. There is no scleral icterus. EARS: Tympanic membranes are intact. External auditory canals are clear. NOSE: There is no deviated nasal septum. There is no inflammation nasal mucous membrane. MOUTH: Mucous me mbranes of mouth are moist. Tongue is moist. There is no ulcers. There is no bleeding from the gums. THROAT: There is no redness of the oropharynx. There is no exudates. SKIN: There is no skin rashes. There is no petechia or ecchymosis. There is no skin lesions. NECK: Is supple. There is JVD present. Carotids are equal there is no bruit. There is no lymphadenopathy. There is no goiter. There is no accessory muscle respiration use. Trachea central. LUNGS: Shows bibasilar rales of CHF. There is no rhonchi or wheezing. HEART: S1-S2 is heard. There is no S3 gallop. There is no S4 gallop. There is systolic murmur left sternal border and the apex there is no rub. ABDOMEN: Soft. Nontender. There is no paraspinal megaly. Abdomen is obese. There is no tender areas of masses. EXTREMITIES femorals are deep femorals are difficult to palpate but there is no femoral bruits. Leg pulses are diminished. There is mild pedal edema bilaterally. BUCKRAM SEWER patient is conscious awake alert oriented x3 with no focal deficits. PSYCHIATRIC: The patient judgment insight are intact his affect is normal. Labs- Entire Visit 08/17/19 08/17/19 08/17/19 05:20 05:20 05:20 WBC 9.4 RBC 4.53 Hgb 14.1 Hct 41.3 MCV 91 MCH 31.1 MCHC 34.1 RDW 14.4 H Plt Count 285 Lymph % (Auto) 38.8 Gordon % (Auto) 7.3 Eos % (Auto) 3.5 Baso % (Auto) 1.0 Absolute Neuts (auto) 4.7 Absolute Lymphs (auto) 3.7 Absolute Monos (auto) 0.7 Absolute Eos (auto) 0.3 Absolute Basos (auto) 0.1 Seg Neutrophils % 49.4 Sodium 139.0 Potassium 4.1 Chloride 105 Carbon Dioxide 26 Anion Gap 8 BUN 16 Creatinine 0.87 Est GFR ( Amer) > 60 Est GFR (MDRD) Non-Af > 60 Glucose 111 H Hemoglobin A1c % Calcium 9.2 Magnesium Total Bilirubin 0.6 Direct Bilirubin 0.0 Neonat Total Bilirubin Not Reportable Neonat Direct Bilirubin Not Reportable Neonat Indirect Bili Not Reportable AST 36 ALT 50 Alkaline Phosphatase 67 Creatine Kinase 113 Troponin I NT-Pro-B Natriuret Pep Total Protein 6.4 Albumin 3.8 TSH Free T4 Free T3 pg/mL Urine Color Urine Appearance Urine pH Ur Specific [place] Urine Protein Urine Glucose (UA) Urine Ketones Urine Blood Urine Nitrite Urine Bilirubin Urine Urobilinogen Ur Leukocyte Esterase Urine WBC (Auto) Urine RBC (Auto) Squamous Epi Cells Auto Urine Mucus (Auto) Urine Ascorbic Acid 08/17/19 08/17/19 08/17/19 05:20 05:20 05:20 WBC RBC Hgb Hct MCV MCH MCHC RDW Plt Count Lymph % (Auto) Gordon % (Auto) Eos % (Auto) Baso % (Auto) Absolute Neuts (auto) Absolute Lymphs (auto) Absolute Monos (auto) Absolute Eos (auto) Absolute Basos (auto) Seg Neutrophils % Sodium Potassium Chloride Carbon Dioxide Anion Gap BUN Creatinine Est GFR ( Amer) Est GFR (MDRD) Non-Af Glucose Hemoglobin A1c % Calcium Magnesium Total Bilirubin Direct Bilirubin Neonat Total Bilirubin Neonat Direct Bilirubin Neonat Indirect Bili AST ALT Alkaline Phosphatase Creatine Kinase Troponin I 0.027 NT-Pro-B Natriuret Pep 1390 H Total Protein Albumin TSH 6.41 H Free T4 1.12 Free T3 pg/mL 3.47 Urine Color Urine Appearance Urine pH Ur Specific [place] Urine Protein Urine Glucose (UA) Urine Ketones Urine Blood Urine Nitrite Urine Bilirubin Urine Urobilinogen Ur Leukocyte Esterase Urine WBC (Auto) Urine RBC (Auto) Squamous Epi Cells Auto Urine Mucus (Auto) Urine Ascorbic Acid 08/17/19 08/18/19 08/18/19 18:27 06:18 06:18 WBC 9.3 RBC 4.48 Hgb 14.2 Hct 40.7 MCV 91 MCH 31.7 MCHC 34.8 RDW 14.1 H Plt Count 287 Lymph % (Auto) Gordon % (Auto) Eos % (Auto) Baso % (Auto) Absolute Neuts (auto) Absolute Lymphs (auto) Absolute Monos (auto) Absolute Eos (auto) Absolute Basos (auto) Seg Neutrophils % Sodium 140.4 Potassium 4.2 Chloride 102 Carbon Dioxide 30 Anion Gap 8 BUN 16 Creatinine 0.89 Est GFR ( Amer) > 60 Est GFR (MDRD) Non-Af > 60 Glucose 114 H Hemoglobin A1c % Calcium 9.2 Magnesium 2.2 Total Bilirubin Direct Bilirubin Neonat Total Bilirubin Neonat Direct Bilirubin Neonat Indirect Bili AST ALT Alkaline Phosphatase Creatine Kinase Troponin I NT-Pro-B Natriuret Pep Total Protein Albumin TSH Free T4 Free T3 pg/mL Urine Color YELLOW Urine Appearance CLEAR Urine pH 6.0 Ur Specific [place] 1.009 Urine Protein NEGATIVE Urine Glucose (UA) NEGATIVE Urine Ketones NEGATIVE Urine Blood SMALL H Urine Nitrite NEGATIVE Urine Bilirubin NEGATIVE Urine Urobilinogen NEGATIVE Ur Leukocyte Esterase NEGATIVE Urine WBC (Auto) 1 Urine RBC (Auto) 1 Squamous Epi Cells Auto <1 Urine Mucus (Auto) RARE Urine Ascorbic Acid NEGATIVE 08/18/19 06:18 WBC RBC Hgb Hct MCV MCH MCHC RDW Plt Count Lymph % (Auto) Gordon % (Auto) Eos % (Auto) Baso % (Auto) Absolute Neuts (auto) Absolute Lymphs (auto) Absolute Monos (auto) Absolute Eos (auto) Absolute Basos (auto) Seg Neutrophils % Sodium Potassium Chloride Carbon Dioxide Anion Gap BUN Creatinine Est GFR ( Amer) Est GFR (MDRD) Non-Af Glucose Hemoglobin A1c % 5.4 Calcium Magnesium Total Bilirubin Direct Bilirubin Neonat Total Bilirubin Neonat Direct Bilirubin Neonat Indirect Bili AST ALT Alkaline Phosphatase Creatine Kinase Troponin I NT-Pro-B Natriuret Pep Total Protein Albumin TSH Free T4 Free T3 pg/mL Urine Color Urine Appearance Urine pH Ur Specific [place] Urine Protein Urine Glucose (UA) Urine Ketones Urine Blood Urine Nitrite Urine Bilirubin Urine Urobilinogen Ur Leukocyte Esterase Urine WBC (Auto) Urine RBC (Auto) Squamous Epi Cells Auto Urine Mucus (Auto) Urine Ascorbic Acid Chest X-Ray 08/17/19 00:00 IMPRESSION: 1. Bilateral perihilar interstitial opacities. These findings could be related to reactive airways disease or interstitial pneumonic process. EKG: Sinus rhythm left bundle branch block pattern. EKG interpreted by myself. ECHOCARDIOGRAM: Shows dilated LV with severely reduced LV ejection fraction. There is no significant pulmonary hypertension. There is no severe significant valvular disease. This has been discussed with the patient. IMPRESSION/RECOMMENDATION: 1. Acute on chronic systolic heart failure. Continue Lasix. #2 dilated cardiomyopathy: Most make sure patient has no underlying coronary a rtery disease. We will start the patient on Toprol-XL 25 mg p.o. every 12 hours and increase as tolerated. There is also start the patient on lisinopril 5 mg p.o. twice daily and increase as tolerated. Continue Lasix. 3. Hypertension: Blood pressure stable. 4. Sleep apnea: Patient not on CPAP. 5. GERD. 6. Morbid obesity. Medications reviewed. Medications added. Medical regimen decision making is of high complexity. 60 minutes spent as patient more than 50% time spent in direct patient care.
[2019-08-18] MEDS: OXYMETAZOLINE HCL 0.05% NASAL SPRAY 15 ML BOTTLE NASL SCH (22:10)
[2019-08-18] MEDS: LISINOPRIL 5 MG TABLET PO SCH (22:18)
[2019-08-18] MEDS: METOPROLOL SUCCINATE 25 MG TAB.SR.24H PO SCH (22:18)
[2019-08-18] MEDS: IPRATROPIUM/ALBUTEROL 0.5-2.5 MG/3 ML AMPUL NEB PRN (22:29)
[2019-08-19] MEDS: ACETAMINOPHEN 325 MG TABLET PO PRN ×2 (00:32→20:03)
[2019-08-19] MEDS: ENOXAPARIN SODIUM INJ 40 MG/0.4 ML DISP.SYRIN SUBCUT SCH (09:45)
[2019-08-19] MEDS: METOPROLOL SUCCINATE 25 MG TAB.SR.24H PO SCH ×2 (09:47→22:06)
[2019-08-19] MEDS: FUROSEMIDE INJ/PF 40 MG/4 ML SDV IV SCH (09:47)
[2019-08-19] MEDS: FAMOTIDINE 20 MG TABLET PO SCH ×2 (09:47→22:06)
[2019-08-19] MEDS: LISINOPRIL 5 MG TABLET PO SCH ×2 (09:47→22:06)
--- NOTE | 2019-08-19 15:04 | PDOC PROGRESS REPORT ---
Subjective Progress Note for:: 08/19/19 Subjective:: This is a 38-year-old male with a past medical history of longstanding COURTNEY not on CPAP and hypertension who presented with increasing shortness of breath. Patient was noted to have a new onset CHF with an EF of 25 to 30%. Patient was started on CHF regimen. He was he was also started on IV Lasix No acute event overnight. Upon encounter this morning, patient reports he feels better and that his shortness of breath has improved. Denies chest pain. His pedal edema has also slightly improved with diuresis. Reason For Visit: NEW ONSET CHF,OBESITY,HYPERTENSION,STRUCT OF SLEEP Physical Exam Vital Signs: Temp Pulse Resp BP Pulse Ox 97.6 F 86 18 102/53 L 93 08/19/19 08:00 08/19/19 08:00 08/19/19 08:00 08/19/19 08:00 08/19/19 08:00 Intake & Output 08/18/19 08/19/19 08/20/19 06:59 06:59 06:59 Intake Total 596 1446 Output Total 4950 1425 Balance -4354 21 Weight 418 lb 10.525 oz 397 lb 4.368 oz General appearance: PRESENT: no acute distress, well-developed, well-nourished Head exam: PRESENT: atraumatic, normocephalic Eye exam: PRESENT: conjunctiva pink, EOMI, PERRLA. ABSENT: scleral icterus Ear exam: PRESENT: normal external ear exam Mouth exam: PRESENT: moist, tongue midline Neck exam: ABSENT: carotid bruit, JVD, lymphadenopathy, thyromegaly Respiratory exam: PRESENT: rhonchi. ABSENT: wheezes Cardiovascular exam: PRESENT: RRR. ABSENT: diastolic murmur, rubs, systolic murmur Pulses: PRESENT: normal dorsalis pedis pul GI/Abdominal exam: PRESENT: normal bowel sounds, soft. ABSENT: distended, guarding, mass, organolmegaly, rebound, tenderness Rectal exam: PRESENT: deferred Extremities exam: PRESENT: +2 edema Neurological exam: PRESENT: alert, awake, oriented to person, oriented to place, oriented to time, oriented to situation, CN II-XII grossly intact. ABSENT: motor sensory deficit Results Laboratory Results: 08/18/19 06:18 08/18/19 06:18 08/17/19 08/17/19 05:20 05:20 Creatine Kinase 113 Troponin I 0.027 NT-Pro-B Natriuret Pep 1390 H Impressions: Chest X-Ray 08/17/19 00:00 IMPRESSION: 1. Bilateral perihilar interstitial opacities. These findings could be related to reactive airways disease or interstitial pneumonic process. Assessment and Plan - Diagnosis (1) Congestive heart failure (CHF) Qualifiers: Heart failure type: systolic Heart failure chronicity: acute on chronic Qualified Code(s): I50.23 - Acute on chronic systolic (congestive) heart failure Is this a current diagnosis for this admission?: Yes Plan: Echo showed an EF of 25 to 30%. Patient started on beta-christen and TG inhibitor. Cardiology following. We will continue IV Lasix today. Blood pressures on the low normal end at 100/50s. Decrease IV Lasix to 20 mg every 12. (2) Morbid obesity Is this a current diagnosis for this admission?: Yes (3) Obstructive sleep apnea Is this a current diagnosis for this admission?: Yes - Plan Summary Summary: he has been admitted for diuretics, echocardiogram, thyroid functions. No need to do a dietary consult because patient is aware of his calories and what he is eating and so forth. Will start him on antihypertensives as needed. Possibly 2 days of hospitalization Patient is medically stable in no distress 08/18/2019 Patient's systolics have remained slightly elevated 86 and 90 Patient's troponin slightly elevated probably due to demand, BNP also slightly elevated 1390,. TSH slightly elevated 6.4 however free T4 and free T3 are normal. I would almost be tempted to try this patient on a low dose of Synthroid 0.05 for 4 months to see if that would start his metabolism and possibly weight loss, however I am not sure if anyone would continue this medicine. hemoglobin A1c is normal 5.4 Patient is feeling better with less shortness of breath. Cardiology has been consulted to address patient's new onset of CHF. Patient currently receiving Lasix 40 mg IV every 12 hours Patient medically stable with new onset CHF, 10-year history of obstructive sleep apnea with no treatment, hypertension for years but no medications. - Time Time Spent with patient: 25-34 minutes
--- NOTE | 2019-08-19 15:06 | CDI QUERY ---
CDI Query CDI Review: Dear Provider: To better reflect your patients severity of illness, morbidity, and resource utilization Please specify and document in the Progress Notes and Discharge Summary if you are monitoring / treating / evaluating any of the following conditions: Query Clinical indicators Please qualify the Morbid Obesity by including the BMI in your documentation: Morbid Obesity / BMI 53.9 kg/m2 Please specify the type and acuity of heart failure in your progress notes: Type Systolic Diastolic Combined systolic and diastolic Other heart failure (please specify) Unable to determine Acuity Acute Chronic Acute on Chronic (decompensated, exacerbated) Unable to determine Chart Header: 6 ft 180.2 kg(396.44 lbs) BMI: 53.9 kg/m2 Documented in Progress Notes: Morbid obesity Congestive heart failure (CHF) Qualifiers: Heart failure type: unspecified Heart failure chronicity: unspecified Qualified Code(s): I50.9 - Heart failure, unspecified Consultation Notes: 1. Acute on chronic systolic heart failure. Continue Lasix. #2 dilated cardiomyopathy: The terms probable, suspected, likely, possible or still to be ruled out may be used if you are unable to determine the exact nature of a condition. Thank you, Clinical Documentation Physician Advisors JIMBO Robb RN, BSN RN Office [phone] Office [phone]
[2019-08-19] MEDS ORDERED: HYDRALAZINE HCL INJ/PF 20 MG/1 ML SDV IV ONE (17:30)
[2019-08-19] MEDS ORDERED: FUROSEMIDE INJ/PF 40 MG/4 ML SDV IV SCH (22:00)
[2019-08-19] MEDS: FUROSEMIDE INJ/PF 20 MG/2 ML SDV IV SCH (22:07)
[2019-08-19] MEDS: OXYMETAZOLINE HCL 0.05% NASAL SPRAY 15 ML BOTTLE NASL SCH (22:11)
[2019-08-20] MEDS: IPRATROPIUM/ALBUTEROL 0.5-2.5 MG/3 ML AMPUL NEB PRN (00:27)
[2019-08-20] MEDS: ENOXAPARIN SODIUM INJ 40 MG/0.4 ML DISP.SYRIN SUBCUT SCH (09:46)
[2019-08-20] MEDS: FUROSEMIDE INJ/PF 20 MG/2 ML SDV IV SCH (09:46)
[2019-08-20] MEDS: METOPROLOL SUCCINATE 25 MG TAB.SR.24H PO SCH (09:50)
[2019-08-20] MEDS: FAMOTIDINE 20 MG TABLET PO SCH (09:51)
[2019-08-20] MEDS ORDERED: LISINOPRIL 5 MG TABLET PO SCH (10:00)
[2019-08-20] MEDS: OXYCODONE-ACETAMINOPHEN 5-325 MG TABLET PO PRN (10:22)
[2019-08-20 13:13] VITALS: BP 109/78
--- NOTE | 2019-08-20 19:13 | PDOC DISCHARGE SUMMARY ---
Impression - Admit/DC Date/PCP Admission Date/Primary Care Provider: 08/17/19 09:39 Discharge Date: 08/20/19 - Discharge Diagnosis (1) Congestive heart failure (CHF) Is this a current diagnosis for this admission?: Yes (2) Morbid obesity Is this a current diagnosis for this admission?: Yes (3) Obstructive sleep apnea Is this a current diagnosis for this admission?: Yes - Additional Information Resuscitation Status: Full Code Discharge Diet: Cardiac Discharge Activity: Activity As Tolerated, Weigh Daily Referrals: [facility]Other[facility] ([facility]) [facility] [Provider Group] (NO APPT. AVAILABLE AT THIS TIME. CLINIC STAFF WILL CALL PATIENT WITH AN APPT. WHEN AVAILABLE.) Prescriptions: Furosemide [Lasix 20 mg Tablet] 20 mg PO BID #60 tablet Lidocaine [Lidocaine Pain Relief] 1 each TP DAILYP PRN #20 adh..patch PRN Reason: For Pain Lisinopril [Prinivil 10 mg Tablet] 10 mg PO Q12 #60 tablet Metoprolol Succinate [Toprol Xl 25 mg Tab.sr] 25 mg PO Q12 #60 tab.sr.24h Home Medications: Acetaminophen [Tylenol] 325 mg PO DAILYP PRN 08/17/19 Ibuprofen 200 mg PO DAILYP PRN 08/17/19 Omeprazole Magnesium [Prilosec Otc] 20 mg PO DAILY 08/17/19 Oxymetazoline HCl [Afrin 0.05% Nasal [place] 15 ml Bottle] 1 spray NASL QHS 08/17/19 Furosemide [Lasix 20 mg Tablet] 20 mg PO BID #60 tablet 08/20/19 Lidocaine [Lidocaine Pain Relief] 1 each TP DAILYP PRN #20 adh..patch 08/20/19 Lisinopril [Prinivil 10 mg Tablet] 10 mg PO Q12 #60 tablet 08/20/19 Metoprolol Succinate [Toprol Xl 25 mg Tab.sr] 25 mg PO Q12 #60 tab.sr.24h 08/20/19 History of Present Illiness History of Present Illness: Admitting hospitalist's H&P: CARLOS SRINIVASAN is a 38 year old male who comes into the emergency room with about a 5 to 6-week history of shortness of breath. She states about 5 weeks ago he went to an urgent care and they thought he had bronchitis he took some an tibiotics and an inhaler he says eating getting better. He is not sleeping at night because of shortness of breath and when he does sleep he has to sleep in a sitting position. Has had a cough but it is nonproductive also he has had "tightness" in his chest. Patient states in 2008 he had a sleep apnea study performed and was told that he had obstructive sleep apnea, ever he never went on CPAP even though he was supposed to. At that time he weighed 280 pounds and now he weighs 420 pounds. Patient states that he is never been told to take high blood pressure medicine but he has been told in the past he had high blood pressure. Patient comes in now with shortness of breath that is not getting better over 6 weeks. Hospital Course Hospital Course: This is a 38-year-old male with a past medical history of longstanding COURTNEY not on CPAP and hypertension who presented with increasing shortness of breath. Patient was noted to have a new onset CHF with an EF of 25 to 30%. Patient was started on CHF regimen. He was he was also started on IV Lasix. Cardiology was also consulted. He did diurese well and returned to his baseline. He was sleeping on O2 and returned to his baseline. He was able to ambulate the hallways on room air without any desaturation or acute issues. His beta-blockers and TG inhibitors were also increased by cardiology and he tolerated this well. Patient does not have a PCP due to insurance issues. [facility] He will also follow-up with Dr. Harden. Recommended he will need another sleep study to get a CPAP. Patient says that he will have a CPAP at home as his father has not been using his and is giving it to him. Regardless, he will still need close follow-up with PCP for appropriate titration of his CPAP later. Physical Exam Vital Signs: Temp Pulse Resp BP Pulse Ox 97.3 F 93 19 109/78 93 08/20/19 13:10 08/20/19 13:10 08/20/19 13:10 08/20/19 13:10 08/20/19 13:10 Intake & Output 08/19/19 08/20/19 08/21/19 06:59 06:59 06:59 Intake Total 1446 1480 Output Total 1425 1400 Balance 21 80 Weight 397 lb 4.368 oz 386 lb 11.053 oz General appearance: PRESENT: no acute distress, well-developed, well-nourished Head exam: PRESENT: atraumatic, normocephalic Eye exam: PRESENT: conjunctiva pink, EOMI, PERRLA. ABSENT: scleral icterus Ear exam: PRESENT: normal external ear exam Mouth exam: PRESENT: moist, tongue midline Neck exam: ABSENT: carotid bruit, JVD, lymphadenopathy, thyromegaly Respiratory exam: PRESENT: clear to auscultation abraham. ABSENT: rales, rhonchi, wheezes Cardiovascular exam: PRESENT: RRR. ABSENT: diastolic murmur, rubs, systolic murmur Pulses: PRESENT: normal dorsalis pedis pul GI/Abdominal exam: PRESENT: normal bowel sounds, soft. ABSENT: distended, guarding, mass, organolmegaly, rebound, tenderness Rectal exam: PRESENT: deferred Extremities exam: PRESENT: +2 edema Neurological exam: PRESENT: alert, awake, oriented to person, oriented to place, oriented to time, oriented to situation, CN II-XII grossly intact. ABSENT: motor sensory deficit Results Laboratory Results: WBC 9.3 10^3/uL (4.0-10.5) 08/18/19 06:18 RBC 4.48 10^6/uL (4.35-5.55) 08/18/19 06:18 Hgb 14.2 g/dL (13.5-17.0) 08/18/19 06:18 Hct 40.7 % (37.9-51.0) 08/18/19 06:18 MCV 91 fl (80-97) 08/18/19 06:18 MCH 31.7 pg (27.0-33.4) 08/18/19 06:18 MCHC 34.8 g/dL (32.0-36.0) 08/18/19 06:18 RDW 14.1 % (11.5-14.0) H 08/18/19 06:18 Plt Count 287 10^3/uL (150-450) 08/18/19 06:18 Lymph % (Auto) 38.8 % (13-45) 08/17/19 05:20 [place] % (Auto) 7.3 % (3-13) 08/17/19 05:20 Eos % (Auto) 3.5 % (0-6) 08/17/19 05:20 Baso % (Auto) 1.0 % (0-2) 08/17/19 05:20 Absolute Neuts (auto) 4.7 10^3/uL (1.7-8.2) 08/17/19 05:20 Absolute Lymphs (auto) 3.7 10^3/uL (0.5-4.7) 08/17/19 05:20 Absolute Monos (auto) 0.7 10^3/uL (0.1-1.4) 08/17/19 05:20 Absolute Eos (auto) 0.3 10^3/uL (0.0-0.6) 08/17/19 05:20 Absolute Basos (auto) 0.1 10^3/uL (0.0-0.2) 08/17/19 05:20 Seg Neutrophils % 49.4 % (42-78) 08/17/19 05:20 Sodium 140.4 mmol/L (137-145) 08/18/19 06:18 Potassium 4.2 mmol/L (3.6-5.0) 08/18/19 06:18 Chloride 102 mmol/L (98-107) 08/18/19 06:18 Carbon Dioxide 30 mmol/L (22-30) 08/18/19 06:18 Anion Gap 8 (5-19) 08/18/19 06:18 BUN 16 mg/dL (7-20) 08/18/19 06:18 Creatinine 0.89 mg/dL (0.52-1.25) 08/18/19 06:18 Est GFR ( Amer) > 60 (>60) 08/18/19 06:18 Est GFR (MDRD) Non-Af > 60 (>60) 08/18/19 06:18 Glucose 114 mg/dL (75-110) H 08/18/19 06:18 Hemoglobin A1c % 5.4 % (4.7-6.0) 08/18/19 06:18 Calcium 9.2 mg/dL (8.4-10.2) 08/18/19 06:18 Magnesium 2.2 mg/dL (1.6-2.3) 08/18/19 06:18 Total Bilirubin 0.6 mg/dL (0.2-1.3) 08/17/19 05:20 Direct Bilirubin 0.0 mg/dL (0.0-0.4) 08/17/19 05:20 Neonat Total Bilirubin Not Reportable 08/17/19 05:20 Neonat Direct Bilirubin Not Reportable 08/17/19 05:20 Neonat Indirect Bili Not Reportable 08/17/19 05:20 AST 36 U/L (17-59) 08/17/19 05:20 ALT 50 U/L (<50) 08/17/19 05:20 Alkaline Phosphatase 67 U/L (38-126) 08/17/19 05:20 Creatine Kinase 113 U/L (55-170) 08/17/19 05:20 Troponin I 0.027 ng/mL 08/17/19 05:20 NT-Pro-B Natriuret Pep 1390 pg/mL (<125) H 08/17/19 05:20 Total Protein 6.4 g/dL (6.3-8.2) 08/17/19 05:20 Albumin 3.8 g/dL (3.5-5.0) 08/17/19 05:20 TSH 6.41 uIU/mL (0.47-4.68) H 08/17/19 05:20 Free T4 1.12 ng/dL (0.78-2.19) 08/17/19 05:20 Free T3 pg/mL 3.47 pg/mL (2.77-5.27) 08/17/19 05:20 Urine Color YELLOW 08/17/19 18:27 Urine Appearance CLEAR 08/17/19 18:27 Urine pH 6.0 (5.0-9.0) 08/17/19 18:27 Ur Specific Gay 1.009 08/17/19 18:27 Urine Protein NEGATIVE mg/dL (NEGATIVE) 08/17/19 18:27 Urine Glucose (UA) NEGATIVE mg/dL (NEGATIVE) 08/17/19 18:27 Urine Ketones NEGATIVE mg/dL (NEGATIVE) 08/17/19 18:27 Urine Blood SMALL (NEGATIVE) H 08/17/19 18:27 Urine Nitrite NEGATIVE (NEGATIVE) 08/17/19 18:27 Urine Bilirubin NEGATIVE (NEGATIVE) 08/17/19 18:27 Urine Urobilinogen NEGATIVE mg/dL (<2.0) 08/17/19 18:27 Ur Leukocyte Esterase NEGATIVE (NEGATIVE) 08/17/19 18:27 Urine WBC (Auto) 1 /HPF 08/17/19 18:27 Urine RBC (Auto) 1 /HPF 08/17/19 18:27 Squamous Epi Cells Auto <1 /HPF 08/17/19 18:27 Urine Mucus (Auto) RARE /LPF 08/17/19 18:27 Urine Ascorbic Acid NEGATIVE (NEGATIVE) 08/17/19 18:27 08/17/19 05:20 Troponin I 0.027 NT-Pro-B Natriuret Pep 1390 H Impressions: Chest X-Ray 08/17/19 00:00 IMPRESSION: 1. Bilateral perihilar interstitial opacities. These findings could be related to reactive airways disease or interstitial pneumonic process. Stroke Is this a Stroke Patient?: No Acute Heart Failure - Is this a Heart Failure Patient?: Yes Documentation of LVEF assessment?: Yes LVEF < 40%?: Yes-if yes answer questions a through e a) Discharged on ACEI?: Yes b) Discharges on ARB?: N/A-Discharged on ARNI c) Discharged on ARNI?: No-Document Contraindications d) Discharged on evidence-based Beta christen(carvedilol, sustained release metoprolol succinate, or bisoprolol)?: Yes e) For LVEF <35%, discharged on Aldosterone antagonist?: No-document contrain cations 3. Anticoagulant therapy for permanect/persistent/paraoxysmal Afib or Aflutter: N/A
== END 2019-08-20 14:36 | disposition home or self-care (01) | DRG 292 ==
LOC: ER 03:25 → EH 09:39 → 5 13:58
PROVIDERS: ADMIT Hospitalist; ATTEND Hospitalist
DX: I11.0 Hypertensive heart disease with heart failure (principal); Z68.43 Body mass index [BMI] 50.0-59.9, adult; G47.33 Obstructive sleep apnea (adult) (pediatric); E66.01 Morbid (severe) obesity due to excess calories; I50.23 Acute on chronic systolic (congestive) heart failure; K21.9 Gastro-esophageal reflux disease without esophagitis; I42.0 Dilated cardiomyopathy; E78.5 Hyperlipidemia, unspecified; Z79.899 Other long term (current) drug therapy
CPT/HCPCS: 36415; 71046; 80048; 80053; 81001; 82550; 83036; 83735; 83880; 84439; 84443; 84481; 84484; 85025; 85027; 93005; 93010; 93306; 94640; 96374; 99285; J0360; J1650; J1940; J3490; J7620

== ENCOUNTER 2019-08-21 22:11 | Emergency (ER) | payer OTHER ==
[2019-08-21 22:31] VITALS: BP 123/56
--- NOTE | 2019-08-21 22:34 | ER Document Report ---
ED Medical Screen (RME) - General Chief Complaint: Breathing Difficulty Stated Complaint: DIFFICULTY BREATHING Time Seen by Provider: 08/21/19 22:30 Mode of Arrival: Wheelchair Notes: 38-year-old male presented to ED for complaint of shortness of breath. He states he just got diagnosed with congestive heart failure Sunday. He states he got discharged yesterday. He states he went home and is gotten more short of b reath. He states he started getting short of breath this morning his O2 sat is a 94 at this time. He states he had a temperature of 103 at 730 tonight and he took Tylenol 500 mg. His temperature now is 99.7. I have greeted and performed a rapid initial assessment of this patient. A comprehensive ED assessment and evaluation of the patient, analysis of test results and completion of medical decision making process will be conducted by an additional ED providers. TRAVEL OUTSIDE OF THE [place] IN LAST 30 DAYS: No - Related Data Allergies/Adverse Reactions: No Known Allergies Allergy (Unverified 05/21/19 18:17) Past Medical History - Past Medical History Cardiac Medical History: Reports: Hx Hypercholesterolemia, Hx Hypertension Pulmonary Medical History: Reports: Hx Sleep Apnea GI Medical History: Reports: Hx Gastroesophageal Reflux Disease, Hx Hiatal Hernia Past Surgical History: Reports: Hx Tonsillectomy
[2019-08-21] MEDS ORDERED: NORMAL SALINE 500 ML IV ONE (22:37)
[2019-08-21 23:23] LABS: A TYPE INFLUENZA AG NEGATIVE (NEGATIVE); B INFLUENZA AG NEGATIVE (NEGATIVE)
--- NOTE | 2019-08-21 23:44 | RADIOLOGY REPORT (SQ) ---
EXAM DESCRIPTION: XR CHEST 2 VIEWS COMPLETED DATE/TME: 08/21/2019 22:35 CLINICAL HISTORY: 38 years Male, Cough congestion fever COMPARISON: None. NUMBER OF VIEWS/TECHNIQUE: 2, Frontal, Lateral FINDINGS: Adequate lung volume, clear parenchyma, normal cardiac silhouette, and intact bony thorax. IMPRESSION: No acute cardiopulmonary findings.
[2019-08-21 23:52] LABS: ABSOLUTE BASOPHILS # (AUTO) 0.1 10^3/uL (0.0-0.2); ABSOLUTE EOSINOPHILS # (AUTO) 0.2 10^3/uL (0.0-0.6); ABSOLUTE LYMPHOCYTES (AUTO) 0.7 10^3/uL (0.5-4.7); ABSOLUTE MONOCYTES (AUTO) 1.1 10^3/uL (0.1-1.4); BASOPHILS % (AUTO) 0.6 % (0-2); EOSINOPHILS % (AUTO) 1.7 % (0-6); HEMATOCRIT 44.3 % (37.9-51.0); HEMOGLOBIN 14.9 g/dL (13.5-17.0); LYMPHOCYTES % (AUTO) 7.7 % (13-45); MEAN CORPUSCULAR HEMOGLOBIN 31.1 pg (27.0-33.4); MEAN CORPUSCULAR HGB CONC 33.7 g/dL (32.0-36.0); MEAN CORPUSCULAR VOLUME 92 fl (80-97); MONOCYTES % (AUTO) 12.6 % (3-13); PLATELET COUNT 291 10^3/uL (150-450); RED BLOOD COUNT 4.81 10^6/uL (4.35-5.55); RED CELL DISTRIBUTION WIDTH 14.5 % (11.5-14.0); SEGMENTED NEUTROPHILS % (AUTO) 77.4 % (42-78); TOTAL CELLS COUNTED % (AUTO) 100 %
[2019-08-22 00:08] LABS: BLOOD UREA NITROGEN 23 mg/dL (7-20); CALCIUM 9.5 mg/dL (8.4-10.2); GLUCOSE 96 mg/dL (75-110)
[2019-08-22 00:09] LABS: ALBUMIN 4.4 g/dL (3.5-5.0); ALKALINE PHOSPHATASE 74 U/L (38-126); ANION GAP 10 (5-19); ASPARTATE AMINO TRANSFERASE 52 U/L (17-59); BILIRUBIN,TOTAL 0.7 mg/dL (0.2-1.3); CARBON DIOXIDE 28 mmol/L (22-30); CHLORIDE 100 mmol/L (98-107); POTASSIUM 4.9 mmol/L (3.6-5.0); TOTAL PROTEIN 7.4 g/dL (6.3-8.2)
[2019-08-22] MEDS ORDERED: ONDANSETRON HCL INJ/PF 4 MG/2 ML SDV IV ONE (00:17)
[2019-08-22] MEDS ORDERED: OSELTAMIVIR PHOSPHATE 75 MG CAPSULE PO ONE (00:17)
[2019-08-22] MEDS ORDERED: MORPHINE SULFATE 10 MG/ML INJ IV ONE (00:17)
--- NOTE | 2019-08-22 00:28 | ER Document Report ---
ED General - General Chief Complaint: Shortness Of Breath Stated Complaint: DIFFICULTY BREATHING Time Seen by Provider: 08/21/19 22:30 Mode of Arrival: Wheelchair TRAVEL OUTSIDE OF THE [place] IN LAST 30 DAYS: No - HPI Notes: Patient is a 38-year-old male who presents to the emergency department for evaluation. He was actually just discharged from the hospital yesterday. He states that he woke this morning with a fever. He has a sore throat, dry nonproductive cough, body aches. His temperature at home was 103. He took some Tylenol presents to the ER for further evaluation. He has had some nausea but no emesis. Normal bowel movements. He has been taking his medications as prescribed since discharge. - Related Data Allergies/Adverse Reactions: No Known Allergies Allergy (Unverified 05/21/19 18:17) Home Medications: Lisinopril. Furosemide. metoprolol Past Medical History - General Information source: Patient - Social History Smoking Status: Never Smoker Chew tobacco use (# tins/day): No Frequency of alcohol use: Rare Drug Abuse: None Family History: Reviewed & Not Pertinent Patient has suicidal ideation: No Patient has homicidal ideation: No - Past Medical History Cardiac Medical History: Reports: Hx Congestive Heart Failure, Hx Hypercholesterolemia, Hx Hypertension Pulmonary Medical History: Reports: Hx Sleep Apnea GI Medical History: Reports: Hx Gastroesophageal Reflux Disease, Hx Hiatal Hernia Past Surgical History: Reports: Hx Tonsillectomy Review of Systems - Review of Systems Constitutional: See HPI EENT: See HPI Respiratory: See HPI Musculoskeletal: See HPI -: Yes All other systems reviewed and negative Physical Exam - Vital signs Vitals: Temp Pulse Resp BP Pulse Ox 99.4 F 99 18 123/56 L 93 08/21/19 22:30 08/21/19 22:30 08/21/19 22:30 08/21/19 22:30 08/21/19 22:30 - Notes Notes: This is a morbidly obese 38-year-old male who appears his stated age. He is mildly tachypneic intermittently, but this seems to be more with cough. Vital signs reviewed, please refer to chart. Head is normocephalic, atraumatic. Pupils equal round, reactive to light. Oral mucosa is moist. Pharynx is mildly erythematous without exudate. Neck is supple without meningismus. Heart is regular rate and rhythm. Lungs are clear to auscultation bilaterally. Abdomen is soft, nontender, normoactive bowel sounds throughout. Extremities without cyanosis, clubbing. Posterior calves are nontender. Peripheral pulses are equal. Skin is warm and dry. Patient is awake, alert, neurological exam is nonfocal. Course - Re-evaluation Re-evalutation: 08/22/19 00:22 Patient presents to the emergency department for evaluation. His presentation is most consistent with influenza. His work-up shows a mild increase in his kidney function. I suspect this is secondary to the diuresis he underwent in the hospital followed by an illness, but I am inclined to treat him with a small amount of IV fluids. He asked for something for his body aches as well. He is given morphine, avoiding NSAIDs given his renal function. He is also given nausea medicine. Because of his multiple comorbidities I am inclined to treat with Tamiflu at this time. We will give him his first dose here. We will continue to monitor. 08/22/19 01:41 Patient is feeling improved. His blood pressures have been in the 90s and low 100s throughout the course of his stay. I did review his vital signs for while he was hospitalized. This seems to be congruent with where they were. I am concerned because he did have a minor bump in his renal function. I am not sure as to whether or not this is secondary to overdiuresis with his heart failure, or increased metabolic use and dehydration secondary to fever. At any rate, the patient is on a fluid restriction of 2 L. I explained to him that he might need to increase his fluid intake slightly if his fever continues. He needs to continue to treat his fever aggressively with Tylenol. Otherwise he is to continue his home medications. I will send him home with some Brendafran from here, a prescription for Tamiflu. He has a follow-up with Dr. Obrien on Sunday. I will give him a lab slip to have his BMP repeated on Sunday to be sure that his renal function has improved. Patient understands and is amenable to this plan. He understands that if he becomes dizzy, his blood pressure becomes too low, he has decreased urination, or any other new or concerning symptoms, he needs to return immediately to the emergency department for evaluation. - Vital Signs Vital signs: Temp Pulse Resp BP Pulse Ox 99.4 F 99 18 123/56 L 95 08/21/19 22:30 08/21/19 22:30 08/21/19 22:30 08/21/19 22:30 08/21/19 23:46 - Laboratory Result Diagrams: 08/21/19 23:38 08/21/19 23:38 Laboratory results interpreted by me: 08/21/19 08/21/19 23:38 23:38 RDW 14.5 H Lymph % (Auto) 7.7 L BUN 23 H Creatinine 1.33 H ALT 76 H - EKG Interpretation by Me Additional EKG results interpreted by me: 08/22/19 01:43 Sinus tachycardia with a rate of 103 bpm. Left bundle branch block. No change from prior study. Discharge - Discharge Clinical Impression: Influenza, Acute kidney injury Condition: Stable Disposition: HOME, SELF-CARE Instructions: Influenza ([facility]), Kidney Function Abnormality ([facility]) Additional Instructions: Your findings are most consistent with influenza. Please take the Tamiflu as directed until gone. There has been a modest decrease in your kidney function. This needs to be rechecked. Have your labs drawn on Sunday before your visit with Dr. Obrien on Sunday. Tylenol as needed for fever, body aches. Zofran as needed for nausea. Return to the emergency department with worsening or new concerning symptoms of any sort. Forms: Follow-Up Laboratory Testing
[2019-08-22] MEDS ORDERED: ONDANSETRON ODT 4 MG TAB (6 TAB/ER DISP) PO PRN (01:45)
--- NOTE | 2019-08-22 13:55 | EKG REPORT ---
SEVERITY:- ABNORMAL ECG - SINUS TACHYCARDIA LEFT BUNDLE BRANCH BLOCK : Confirmed by: Glenys Obrien MD 22-Aug-2019 13:53:46
== END 2019-08-22 02:59 | disposition home or self-care (01) ==
LOC: ER 22:11
DX: J11.1 Influenza due to unidentified influenza virus with other respiratory manifestations (principal); N17.9 Acute kidney failure, unspecified; R50.9 Fever, unspecified; R05 Cough; R52 Pain, unspecified; R06.82 Tachypnea, not elsewhere classified; R11.0 Nausea; R00.0 Tachycardia, unspecified; I44.7 Left bundle-branch block, unspecified; E78.00 Pure hypercholesterolemia, unspecified; I11.0 Hypertensive heart disease with heart failure; I50.9 Heart failure, unspecified; Z79.899 Other long term (current) drug therapy
CPT/HCPCS: 93005; 99285; 96361; 96374; 96375; 36415; 85025; 80053; 87804; 71046; 93010; J2270; J3490; J2405; J7040

== ENCOUNTER 2019-08-22 20:50 | Emergency (ER) | payer OTHER ==
--- NOTE | 2019-08-22 21:24 | ER Document Report ---
ED Medical Screen (RME) - General Chief Complaint: Chest Pain Stated Complaint: CHEST PAIN Time Seen by Provider: 08/22/19 21:20 TRAVEL OUTSIDE OF THE U.S. IN LAST 30 DAYS: No - HPI Notes: 08/22/19 21:23 Patient is a 38-year-old male with new onset diagnosis of congestive heart failure and was admitted to the hospital and discharged this week and seen again yesterday for URI symptoms presents today complaining of fatigue and some shortness of breath. Denies drug allergies. He has not been running any fever today that he is aware of. He was sent home on Tamiflu and Zofran. He has an appointment with Dr. Obrien on Sunday. No chest pain, abdominal pain, vomiting/diarrhea. I have treated and performed a rapid initial assessment of this patient. A comprehensive ED assessment and evaluation of the patient, analysis of test results and completion of medical decision making process will be conducted by additional ED providers. PHYSICAL EXAMINATION: GENERAL: No acute distress Lungs: Wheezing bilaterally. Patient is currently on oxygen as his oxygen saturation was in the 80s upon arrival. Extremities: 1+ pitting edema bilaterally. - Related Data Allergies/Adverse Reactions: No Known Allergies Allergy (Unverified 08/22/19 21:20) Home Medications: Lisinopril. Lasix. Metoprolol Past Medical History - Past Medical History Cardiac Medical History: Reports: Hx Congestive Heart Failure, Hx Hypercholesterolemia, Hx Hypertension Pulmonary Medical History: Reports: Hx Sleep Apnea GI Medical History: Reports: Hx Gastroesophageal Reflux Disease, Hx Hiatal Hernia Past Surgical History: Reports: Hx Tonsillectomy Physical Exam - Vital signs Vitals: Temp Pulse Resp BP Pulse Ox 98.5 F 95 22 H 85/50 L 97 08/22/19 21:16 08/22/19 21:16 08/22/19 21:16 08/22/19 21:16 08/22/19 21:16 Course - Vital Signs Vital signs: Temp Pulse Resp BP Pulse Ox 98.5 F 95 22 H 85/50 L 97 08/22/19 21:16 08/22/19 21:16 08/22/19 21:16 08/22/19 21:16 08/22/19 21:16
[2019-08-22] MEDS ORDERED: IPRATROPIUM/ALBUTEROL 0.5-2.5 MG/3 ML AMPUL NEB ONE (21:25)
[2019-08-22] MEDS ORDERED: MAGNESIUM SULFATE/D5W 1 GM/100 ML RTUPB IV ONE ×2 (21:25→21:26)
[2019-08-22] MEDS ORDERED: METHYLPREDNISOLONE INJ 125 MG/2 ML SDV IV ONE (21:25)
[2019-08-22] MEDS ORDERED: NORMAL SALINE 250 ML IV ONE (21:27)
--- NOTE | 2019-08-22 22:05 | ER Document Report ---
ED General - General Chief Complaint: Breathing Difficulty Stated Complaint: CHEST PAIN Time Seen by Provider: 08/22/19 21:20 Primary Care Provider: [facility] [Primary Care Provider] - Follow up as needed TRAVEL OUTSIDE OF THE U.S. IN LAST 30 DAYS: No - HPI Onset: Other - over the last 3 days Onset/Duration: Gradual Quality of pain: No pain Severity: Moderate Associated symptoms: Chest pain, Shortness of breath, Weakness Exacerbated by: Denies Relieved by: Denies Similar symptoms previously: No Recently seen / treated by doctor: No Notes: 38 year old male with a history of new onset CHF (EF of 25-30% based on echo from 08/18) here for shortness of breath and weakness for the last several days. The patient was just admitted here at [place] and diagnosed and treated for new onset heart failure. The patient went home and then came back to this ER yesterday for viral like symptoms (cough, congestion, weakness). The patient apparently had chest pain that day. The patient tested negative for the Flu yesterday. The patient has not had chest pain for over 24 hours but he has been having low grade temps at home. - Related Data Allergies/Adverse Reactions: No Known Allergies Allergy (Verified 08/22/19 23:57) Home Medications: Lisinopril. Lasix. Metoprolol Past Medical History - General Information source: Patient - Social History Smoking Status: Never Smoker Frequency of alcohol use: Occasional Drug Abuse: None Family History: Reviewed & Not Pertinent Patient has suicidal ideation: No Patient has homicidal ideation: No - Past Medical History Cardiac Medical History: Reports: Hx Congestive Heart Failure, Hx Hypercholesterolemia, Hx Hypertension Pulmonary Medical History: Reports: Hx Sleep Apnea GI Medical History: Reports: Hx Gastroesophageal Reflux Disease, Hx Hiatal Hernia Past Surgical History: Reports: Hx Tonsillectomy Review of Systems - Review of Systems Constitutional: No symptoms reported EENT: No symptoms reported Cardiovascular: Chest pain, Orthopnea, Dyspnea Respiratory: Short of breath, Wheezing Gastrointestinal: No symptoms reported Genitourinary: No symptoms reported Male Genitourinary: No symptoms reported Musculoskeletal: No symptoms reported Skin: No symptoms reported Hematologic/Lymphatic: No symptoms reported Neurological/Psychological: No symptoms reported -: Yes All other systems reviewed and negative Physical Exam - Vital signs Vitals: Temp Pulse Resp BP Pulse Ox 98.5 F 95 22 H 85/50 L 97 08/22/19 21:16 08/22/19 21:16 08/22/19 21:16 08/22/19 21:16 08/22/19 21:16 - Notes Notes: GENERAL: Somewhat ill-appearing, well-nourished and in no acute distress. HEAD: Atraumatic, normocephalic. EYES: Pupils equal round and reactive to light, extraocular movements intact, sclera anicteric, conjunctiva are normal. ENT: Nares patent, oropharynx clear without exudates. Moist mucous membranes. NECK: Normal range of motion, supple without lymphadenopathy or JVD. LUNGS: Breath sounds clear to auscultation bilaterally and equal. No wheezes rales or rhonchi. HEART: Regular rate and rhythm without murmurs, rubs or gallops. ABDOMEN: Soft, nontender, normoactive bowel sounds. No guarding, no rebound. No masses appreciated. EXTREMITIES: Normal range of motion, no pitting or edema. No clubbing or cyano sis. NEUROLOGICAL: Cranial nerves II through XII grossly intact. Normal speech, normal gait. PSYCH: Normal mood, normal affect. SKIN: Warm, Dry, normal turgor, no rashes or lesions noted. Course - Re-evaluation Re-evalutation: 08/22/19 23:56 The patient seems to be having an NSTEMI as his Troponin is 3.14 (was 0.027 on 08/17). Patient is also in heart failure with [place] [address] today and Creatinine is 5.51 when it was 1.33 yesterday). Patient's K is 5.7 due to his acute kidney injury. Will treat with Sodium Bicarb, Calcium Gluconate, and Insulin. Patient started on Heparin as well. Patient has not had chest pain in over 24 hours. I spoke with the CCU attending and the acid loader [facility] and the plan is for the patient to be transferred to a step down bed for now. Patient has marginal blood pressures here in the ER. Will continue to monitor the patient and only add pressors as needed. - Vital Signs Vital signs: Temp Pulse Resp BP Pulse Ox 98.5 F 95 26 H 96/62 L 94 08/22/19 21:16 08/22/19 21:16 08/22/19 23:31 08/22/19 23:31 08/22/19 23:31 - Laboratory Result Diagrams: 08/22/19 22:17 08/22/19 22:17 Laboratory results interpreted by me: 08/22/19 08/22/19 08/22/19 22:17 22:17 22:17 RDW 14.9 H Band Neutrophils % 2 L Lymphocytes % (Manual) 12 L Monocytes % (Manual) 24 H Abs Monocytes (Manual) 1.8 H VBG pH Sodium 134.6 L Potassium 5.7 H Carbon Dioxide 20 L BUN 42 H Creatinine 5.51 H Est GFR ( Amer) 14 L Est GFR (MDRD) Non-Af 12 L AST 70 H ALT 77 H NT-Pro-B Natriuret Pep 22201 H 08/22/19 22:17 RDW Band Neutrophils % Lymphocytes % (Manual) Monocytes % (Manual) Abs Monocytes (Manual) VBG pH 7.26 L Sodium Potassium Carbon Dioxide BUN Creatinine Est GFR ( Amer) Est GFR (MDRD) Non-Af AST ALT NT-Pro-B Natriuret Pep - Diagnostic Test Radiology reviewed: Image reviewed, Reports reviewed - EKG Interpretation by Me EKG shows normal: Sinus rhythm, [place], Intervals, ST-T Waves Rate: Normal Rhythm: NSR [place]/QRS: Left axis deviation, LBBB When compared to previous EKG there are: No significant change Critical Care Note - Critical Care Note Total time excluding time spent on procedures (mins): 41 Discharge - Discharge Clinical Impression: NSTEMI (non-ST elevated myocardial infarction), Acute kidney injury Congestive heart failure (CHF) Qualifiers: Heart failure type: other Qualified Code(s): I50.9 - Heart failure, unspecified Condition: Serious Disposition: [facility] Admitting Provider: Dr. Cabrera Referrals: [facility] [Primary Care Provider] - Follow up as needed
--- NOTE | 2019-08-22 22:07 | RADIOLOGY REPORT (SQ) ---
Chest 2 view on 08/22/2019 at 9:50 PM CLINICAL INDICATION: Shortness of breath COMPARISON: 08/21/2019 FINDINGS: Mild cardiomegaly is noted. Hilar and mediastinal contours are within normal limits. The lungs are clear. Degenerative changes are noted in the spine. IMPRESSION: No acute disease.
[2019-08-22 22:36] LABS: HEMATOCRIT 41.4 % (37.9-51.0); HEMOGLOBIN 13.8 g/dL (13.5-17.0); MEAN CORPUSCULAR HEMOGLOBIN 31.1 pg (27.0-33.4); MEAN CORPUSCULAR HGB CONC 33.3 g/dL (32.0-36.0); MEAN CORPUSCULAR VOLUME 93 fl (80-97); PLATELET COUNT 278 10^3/uL (150-450); RED BLOOD COUNT 4.44 10^6/uL (4.35-5.55); RED CELL DISTRIBUTION WIDTH 14.9 % (11.5-14.0); WHITE BLOOD COUNT 7.3 10^3/uL (4.0-10.5)
[2019-08-22 22:39] LABS: VENOUS BLOOD BASE EXCESS -4.3 mmol/L; VENOUS BLOOD HCO3 23.4 mmol/L (20-32); VENOUS BLOOD PCO2 52.9 mmHg (35-63); VENOUS BLOOD PH 7.26 (7.30-7.42)
[2019-08-22 22:43] LABS: INTERNATIONAL RATION (INR) 1.13; PROTHROMBIN TIME 14.6 SEC (11.4-15.4)
[2019-08-22 22:56] LABS: ABSOLUTE LYMPHOCYTES# (MANUAL) 0.9 10^3/uL (0.5-4.7); ABSOLUTE MONOCYTES # (MANUAL) 1.8 10^3/uL (0.1-1.4); BAND NEUTROPHILS % (MANUAL) 2 % (3-5); BASOPHILS % (MANUAL) 1 % (0-2); EOSINOPHILS % (MANUAL) 0 % (0-6); LYMPHOCYTES % (MANUAL) 12 % (13-45); MONOCYTES % (MANUAL) 24 % (3-13); SEGMENTED NEUTROPHILS % (MAN) 61 % (42-78); TOTAL CELLS COUNTED 100
[2019-08-22 22:57] LABS: ALBUMIN 4.3 g/dL (3.5-5.0); ALKALINE PHOSPHATASE 55 U/L (38-126); ANION GAP 16 (5-19); ANISOCYTOSIS SLIGHT; ASPARTATE AMINO TRANSFERASE 70 U/L (17-59); BILIRUBIN,DIRECT 0.2 mg/dL (0.0-0.4); BILIRUBIN,TOTAL 0.7 mg/dL (0.2-1.3); BLOOD UREA NITROGEN 42 mg/dL (7-20); CALCIUM 8.7 mg/dL (8.4-10.2); CARBON DIOXIDE 20 mmol/L (22-30); CHLORIDE 99 mmol/L (98-107); GLUCOSE 100 mg/dL (75-110); PLATELET COMMENT ADEQUATE; POTASSIUM 5.7 mmol/L (3.6-5.0); TOTAL PROTEIN 7.3 g/dL (6.3-8.2)
[2019-08-22 23:16] LABS: TROPONIN I 3.14 ng/mL
[2019-08-22] MEDS ORDERED: HEPARIN SODIUM,PORCINE/D5W 25,000 UNIT/250 ML RTUINJ IV PRN (23:54)
[2019-08-22] MEDS ORDERED: HEPARIN SOD (PORCINE) 1,000 UNIT/ML 10 ML VIAL IV ONE (23:54)
[2019-08-23] MEDS ORDERED: CALCIUM GLUCONATE 1000 MG/10 ML INJ IV ONE
[2019-08-23] MEDS ORDERED: SODIUM BICARBONATE 8.4% INJ 50 MEQ/50 ML DISP.SYRIN IV ONE
[2019-08-23] MEDS ORDERED: INSULIN REG, HUMAN 100 UNIT/ML 3 ML VIAL (PYX) IV ONE
[2019-08-23] MEDS ORDERED: DEXTROSE 50%-WATER 25 GM/50 ML DISP.SYRIN IV ONE
[2019-08-23] MEDS ORDERED: ASPIRIN 81 MG TABLET, CHEWABLE PO ONE (00:01)
[2019-08-23] MEDS ORDERED: NOREPINEPHRINE BITARTRATE INJ/PF 4 MG/4 ML SDV IV ONE (00:51)
--- NOTE | 2019-08-23 01:11 | EKG REPORT ---
SEVERITY:- ABNORMAL ECG - SINUS RHYTHM LEFT BUNDLE BRANCH BLOCK : Confirmed by: Glenys Obrien MD 23-Aug-2019 01:10:42
[2019-08-23] MEDS ORDERED: HEPARIN SOD (PORCINE) 1,000 UNIT/ML 10 ML VIAL IV PRN (02:55)
[2019-08-23] MEDS ORDERED: DEXTROSE 5%-WATER 250 ML with NOREPINEPHRINE BITARTRATE 8 MG IV PRN ×2 (06:27)
[2019-08-23 06:28] VITALS: BP 94/46
== END 2019-08-23 07:03 | disposition short-term general hospital (02) ==
LOC: ER 20:50
DX: I21.4 Non-ST elevation (NSTEMI) myocardial infarction (principal); N17.9 Acute kidney failure, unspecified; I50.9 Heart failure, unspecified; R07.9 Chest pain, unspecified; R53.83 Other fatigue; R06.02 Shortness of breath; I11.0 Hypertensive heart disease with heart failure; E78.00 Pure hypercholesterolemia, unspecified
CPT/HCPCS: 93005; 94640; 99285; 96375; 96365; 36415; 87040; 83605; 85025; 85610; 87077; 80053; 84484; 82803; 87150 ×26; 83880; 71046; 93010; J1644 ×2; J0610; J3490 ×3; J2930; J3475; J1815; J7050; J7620

== ENCOUNTER → 2019-09-15 | Outpatient (CLI) | payer OTHER ==
[2019-09-15 13:00] LABS: ALKALINE PHOSPHATASE 64 U/L (38-126); ANION GAP 10 (5-19); ASPARTATE AMINO TRANSFERASE 35 U/L (17-59); BILIRUBIN,TOTAL 0.5 mg/dL (0.2-1.3); BLOOD UREA NITROGEN 11 mg/dL (7-20); CALCIUM 9.3 mg/dL (8.4-10.2); CARBON DIOXIDE 27 mmol/L (22-30); CHLORIDE 101 mmol/L (98-107); GLUCOSE 109 mg/dL (75-110); POTASSIUM 4.4 mmol/L (3.6-5.0); TOTAL PROTEIN 6.6 g/dL (6.3-8.2)
== END ==
LOC: OD 11:21
PROVIDERS: ATTEND Specialist
DX: E78.5 Hyperlipidemia, unspecified (principal); Z79.899 Other long term (current) drug therapy
CPT/HCPCS: 36415; 80048; 80076; 83735

== ENCOUNTER → 2019-09-22 | Outpatient (CLI) | payer OTHER ==
--- NOTE | 2019-09-22 16:09 | RADIOLOGY REPORT (SQ) ---
EXAM DESCRIPTION: CAROTID DOPPLER IMAGES COMPLETED DATE/TIME: 09/22/2019 3:54 pm REASON FOR STUDY: LT RETINAL BRANCH OCCLUSION H34.232 RETINAL ARTERY BRANCH OCCLUSION, LEFT EYE COMPARISON: None. TECHNIQUE: Grayscale ultrasound, Doppler velocity and spectra, and color Doppler images acquired of the extra-cranial carotid and vertebral arteries. Images stored on PACS. LIMITATIONS: None. FINDINGS: RIGHT CAROTID CCA Velocities: Within normal limits. ICA Velocities Peak systolic 1.20 m/s. End diastolic 0.28 m/s. Proximal ICA/CCA peak systolic ratio 1.1. Spectra normal. No significant plaque. LEFT CAROTID CCA Velocities: Within normal limits. ICA Velocities Peak systolic 0.63 m/s. End diastolic 0.22 m/s. Proximal ICA/CCA peak systolic ratio 1.0. Spectra normal. No significant plaque. VERTEBRAL ARTERIES: Antegrade flow. Normal waveforms. SUBCLAVIAN ARTERIES: Not imaged. OTHER: Incidental solid nodule right lobe of thyroid measuring 1.8 x 1.4 cm. IMPRESSION: No significant stenosis. Incidental right thyroid nodule. COMMENT: Quality ID #[id number]: Velocity criteria are extrapolated from the diameter data as defined by t he Society of Radiologists in Ultrasound Consensus Conference. Radiology 2003: 229; 340-346. TECHNICAL DOCUMENTATION: JOB ID: [id number] 2010 [employer]- All Rights Reserved Reading location - IP/workstation name: [email or web address]
== END ==
LOC: SP 12:47
PROVIDERS: ATTEND Ophthalmology
DX: H34.232 Retinal artery branch occlusion, left eye (principal); E04.1 Nontoxic single thyroid nodule
CPT/HCPCS: 93880

== ENCOUNTER 2020-01-07 11:27 | Emergency (ER) | payer OTHER ==
--- NOTE | 2020-01-07 11:38 | ER Document Report ---
ED Medical Screen (RME) - General Chief Complaint: Chest Pain Stated Complaint: LOW BLOOD PRESSURE/WEAKNESS Time Seen by Provider: 01/07/20 11:32 Primary Care Provider: HALEY DEVRIES MD [Primary Care Provider] - Follow up as needed Mode of Arrival: Wheelchair Information source: Patient Notes: 39-year-old male presented to ED for shortness of breath low blood pressure chest pain. He states he was doing the cardiac rehab when he all of a sudden got very dizzy short of breath lightheaded chest pain and her blood pressure dropped. He states he was very sweaty body started aching all over. He states he was in the hospital in July for CHF and ended up being in the hospital for month between here in [place] and he was doing his cardiac rehab from that. He is alert and oriented he is able to answer questions appropriately and states his pain is not bad now. He states he is feeling better his blood pressure has come up. I have greeted and performed a rapid initial assessment of this patient. A comprehensive ED assessment and evaluation of the patient, analysis of test results and completion of medical decision making process will be conducted by an additional ED providers. TRAVEL OUTSIDE OF THE U.S. IN LAST 30 DAYS: No - Related Data Allergies/Adverse Reactions: chlorhexidine Allergy (Verified 01/07/20 11:36) Past Medical History - Past Medical History Cardiac Medical History: Reports: Hx Congestive Heart Failure, Hx Hypercholesterolemia, Hx Hypertension Pulmonary Medical History: Reports: Hx Sleep Apnea GI Medical History: Reports: Hx Gastroesophageal Reflux Disease, Hx Hiatal Hernia Past Surgical History: Reports: Hx Tonsillectomy Physical Exam - Vital signs Vitals: Temp Pulse Resp BP Pulse Ox 98.6 F 98 16 117/71 96 01/07/20 11:31 01/07/20 11:31 01/07/20 11:31 01/07/20 11:31 01/07/20 11:31 Course - Vital Signs Vital signs: Temp Pulse Resp BP Pulse Ox 98.6 F 98 16 117/71 96 01/07/20 11:31 01/07/20 11:31 01/07/20 11:31 01/07/20 11:31 01/07/20 11:31 Doctor's Discharge - Discharge Referrals: HALEY DEVRIES MD [Primary Care Provider] - Follow up as needed
[2020-01-07 12:12] LABS: ABSOLUTE BASOPHILS # (AUTO) 0.1 10^3/uL (0.0-0.2); ABSOLUTE EOSINOPHILS # (AUTO) 0.2 10^3/uL (0.0-0.6); ABSOLUTE LYMPHOCYTES (AUTO) 3.1 10^3/uL (0.5-4.7); ABSOLUTE MONOCYTES (AUTO) 1.2 10^3/uL (0.1-1.4); ABSOLUTE NEUT (AUTO) 8.1 10^3/uL (1.7-8.2); BASOPHILS % (AUTO) 0.8 % (0-2); EOSINOPHILS % (AUTO) 1.9 % (0-6); HEMATOCRIT 42.8 % (37.9-51.0); HEMOGLOBIN 14.8 g/dL (13.5-17.0); LYMPHOCYTES % (AUTO) 24.5 % (13-45); MEAN CORPUSCULAR HEMOGLOBIN 31.4 pg (27.0-33.4); MEAN CORPUSCULAR HGB CONC 34.6 g/dL (32.0-36.0); MEAN CORPUSCULAR VOLUME 91 fl (80-97); MONOCYTES % (AUTO) 9.5 % (3-13); PLATELET COUNT 476 10^3/uL (150-450); RED BLOOD COUNT 4.72 10^6/uL (4.35-5.55); RED CELL DISTRIBUTION WIDTH 14.3 % (11.5-14.0); SEGMENTED NEUTROPHILS % (AUTO) 63.3 % (42-78); TOTAL CELLS COUNTED % (AUTO) 100 %; WHITE BLOOD COUNT 12.7 10^3/uL (4.0-10.5)
[2020-01-07 12:15] LABS: PARTIAL THROMBOPLASTIN TIME 28.6 SEC (23.5-35.8); PROTHROMBIN TIME 13.2 SEC (11.4-15.4)
[2020-01-07 13:01] LABS: APPEARANCE,URINE SLIGHTLY-CLOUDY; BILIRUBIN,URINE NEGATIVE (NEGATIVE); COLOR,URINE YELLOW; GLUCOSE, URINE NEGATIVE (NEGATIVE); KETONES,URINE NEGATIVE (NEGATIVE); LEUKOCYTE ESTERASE,URINE NEGATIVE (NEGATIVE); NITRITE,URINE NEGATIVE (NEGATIVE); PROTEIN,URINE NEGATIVE (NEGATIVE); URINE SPECIFIC GRAVITY 1.017
[2020-01-07 13:16] LABS: ALBUMIN 3.8 g/dL (3.5-5.0); ALKALINE PHOSPHATASE 83 U/L (38-126); ANION GAP 7 (5-19); ASPARTATE AMINO TRANSFERASE 22 U/L (17-59); BILIRUBIN,TOTAL 0.7 mg/dL (0.2-1.3); BLOOD UREA NITROGEN 18 mg/dL (7-20); CALCIUM 9.4 mg/dL (8.4-10.2); CARBON DIOXIDE 27 mmol/L (22-30); CHLORIDE 101 mmol/L (98-107); CREATINE KINASE 53 U/L (55-170); GLUCOSE 93 mg/dL (75-110); TOTAL PROTEIN 6.6 g/dL (6.3-8.2)
--- NOTE | 2020-01-07 13:16 | EKG REPORT ---
SEVERITY:- ABNORMAL ECG - SINUS RHYTHM LEFT BUNDLE BRANCH BLOCK : Confirmed by: Win Coker MD 07-Jan-2020 13:15:56
--- NOTE | 2020-01-07 13:21 | RADIOLOGY REPORT (SQ) ---
EXAM DESCRIPTION: CHEST 2 VIEWS IMAGES COMPLETED DATE/TIME: 01/07/2020 1:04 pm REASON FOR STUDY: short of breath chest pain during cardiac rehab COMPARISON: 08/22/2019 EXAM PARAMETERS: NUMBER OF VIEWS: two views TECHNIQUE: Digital Frontal and Lateral radiographic views of the chest acquired. RADIATION DOSE: NA LIMITATIONS: none FINDINGS: LUNGS AND PLEURA: No opacities, masses or pneumothorax. No pleural effusion. MEDIASTINUM AND HILAR STRUCTURES: No masses or contour abnormalities. HEART AND VASCULAR STRUCTURES: Heart normal size. No evidence for failure. BONES: No acute findings. HARDWARE: None in the chest. OTHER: No other significant finding. IMPRESSION: NO ACUTE RADIOGRAPHIC FINDING IN THE CHEST. TECHNICAL DOCUMENTATION: JOB ID: [id number] 2010 [employer]- All Rights Reserved Reading location - IP/workstation name: [email or web address]
--- NOTE | 2020-01-07 14:07 | ER Document Report ---
ED General - General Chief Complaint: Chest Pain Stated Complaint: LOW BLOOD PRESSURE/WEAKNESS Time Seen by Provider: 01/07/20 11:32 Primary Care Provider: HALEY DEVRIES MD [NO LOCAL MD] - Follow up as needed Mode of Arrival: Wheelchair TRAVEL OUTSIDE OF THE U.S. IN LAST 30 DAYS: No - HPI Notes: Chief complaint: Dizziness, chest pain and low blood pressure History of present illness: 39-year-old male with history of idiopathic cardiomyopathy with ejection fraction under 10% previously treated at [facility] within the last 3 months with previous heart catheterization showing clean coronary vessels is now seen in the emergency department after having an episode of weakness, low blood pressure and chest pain while [facility] Patient says he was told his blood pressure dropped to 80/60. He was mildly diaphoretic. He had vague tightness in the center of his chest without radiation. This lasted under 10 minutes. He is now back at baseline and is asymptomatic. No recent change in medications. No fever, chills or cough. No vomiting or diarrhea. Normal intake of food and fluids today. - Related Data Allergies/Adverse Reactions: chlorhexidine Allergy (Verified 01/07/20 11:36) Home Medications: aspirin, lasix, metoprolol, lipitor, entresto, lasix Past Medical History - General Information source: Patient - Social History Smoking Status: Never Smoker Chew tobacco use (# tins/day): No Frequency of alcohol use: None Drug Abuse: None Family History: Reviewed & Not Pertinent - Past Medical History Cardiac Medical History: Reports: Hx Congestive Heart Failure, Hx Hypercholest erolemia, Hx Hypertension Pulmonary Medical History: Reports: Hx Sleep Apnea GI Medical History: Reports: Hx Gastroesophageal Reflux Disease, Hx Hiatal Hernia Past Surgical History: Reports: Hx Tonsillectomy Review of Systems - Review of Systems Notes: Constitutional: Negative for fever. HENT: Negative for sore throat. Eyes: Negative for visual changes. Cardiovascular: As per HPI. Respiratory: Negative for shortness of breath. Gastrointestinal: Nausea during episode as per HPI.. Genitourinary: Negative for dysuria. Musculoskeletal: Negative for back pain. Skin: Negative for rash. Neurological: Negative for headaches, focal weakness or numbness. 10 point ROS negative except as marked above and in HPI. Physical Exam - Vital signs Vitals: Temp Pulse Resp BP Pulse Ox 98.6 F 98 16 117/71 96 01/07/20 11:31 01/07/20 11:31 01/07/20 11:31 01/07/20 11:31 01/07/20 11:31 - Notes Notes: GENERAL: Obese male approximately stated age appearing in no acute distress. SKIN: Good turgor no rashes. HEAD: Normocephalic atraumatic. EYES: PERRLA. EOMI. Conjunctivae and sclerae clear. EARS: CANALS AND TMS CLEAR. NOSE: CLEAR. MOUTH: Moist mucosa. Good dentition. No stridor or edema. No drooling. NECK: Supple. No masses or thyromegaly. No adenopathy. Carotids 2+ without bruits. No JVD. BACK: Symmetrical without tenderness. CHEST: Respirations unlabored. Breath sounds clear and symmetrical. HEART: Regular rhythm. No murmur gallop or rub. ABDOMEN: Soft nontender without masses, organomegaly or rebound. Bowel sounds normally active. No bruits. GENITALIA: Deferred. EXTREMITIES: No edema. No calf tenderness. Cap refill less than 1.5 seconds. Dorsalis pedis and posterior tibial pulses 3+ and symmetrical. NEUROLOGICAL: GCS 15. Alert and oriented x3. Normal gait. Fluent speech. Cranial nerves II through XII intact. Sensorimotor and cerebellar normal. Normal tone. PSYCHIATRIC: Appropriate affect. Course - Re-evaluation Re-evalutation: 01/07/20 17:57 Patient is mildly orthostatic here. Has had 2- troponins and his EKG is unchanged from before again showing left bundle branch block which she has had long-term. His chest x-ray showed no active disease. His BNP was 525. His CBC and comprehensive metabolic profile are unremarkable. Case was discussed with his refractory mixer from the heart failure clinic at [facility], Dr. Mendes, by telephone. We note that he is currently taking 80 mg Lasix twice daily will ask him to hold 1 dose and then cut his daily dosing back to 40 mg twice daily. He will be contacted by staff from [facility] heart failure clinic tomorrow morning and they will arrange a follow-up in clinic this week. Findings, clinical impression and plan of treatment have been discussed with patient/family. Understanding of current findings and recommendations has been acknowledged by them and there is agreement regarding disposition and follow-up. - Vital Signs Vital signs: Temp Pulse Resp BP Pulse Ox 98.6 F 85 18 130/72 H 98 01/07/20 11:33 01/07/20 16:36 01/07/20 14:00 01/07/20 16:36 01/07/20 14:00 - Laboratory Result Diagrams: 01/07/20 11:55 01/07/20 12:45 Laboratory results interpreted by me: 01/07/20 01/07/20 01/07/20 11:55 12:45 12:45 WBC 12.7 H RDW 14.3 H Plt Count 476 H Sodium 135.3 L Creatine Kinase 53 L NT-Pro-B Natriuret Pep Urine Blood SMALL H Urine Urobilinogen 2.0 H 01/07/20 12:45 WBC RDW Plt Count Sodium Creatine Kinase NT-Pro-B Natriuret Pep 355 H Urine Blood Urine Urobilinogen - Diagnostic Test Radiology reviewed: Reports reviewed - Normal portable chest x-ray per radiology. - EKG Interpretation by Me Additional EKG results interpreted by me: 01/07/20 14:06 Twelve-lead EKG from 1152 hrs. reviewed contemporaneously by me showing normal sinus rhythm rate of 93 and a pre-existing left bundle branch block. No new changes are noted on EKG in comparison to prior study of August 22, 2019. Indication for current study: Chest pain. Discharge - Discharge Clinical Impression: Postural hypotension due to volume deple Condition: Stable Disposition: HOME, SELF-CARE Additional Instructions: Hold your evening dose of Lasix tonight. Starting tomorrow, reduce your Lasix to 40 mg twice daily. Stay on all other medications as previously prescribed. You will be contacted by Dr. Mendes office ([facility]) tomorrow morning regarding a clinic follow-up appointment. Return here as needed for new or worsening symptoms: Pain that is worsening or unimproved Increased difficulty breathing Uncontrolled vomiting High fever or shaking chills Overall worsening Referrals: HALEY DEVRIES MD [NO LOCAL MD] - Follow up as needed
[2020-01-07] MEDS ORDERED: ACETAMINOPHEN 325 MG TABLET PO ONE (14:08)
[2020-01-07 18:08] VITALS: BP 119/73
== END 2020-01-07 18:13 | disposition home or self-care (01) ==
LOC: ER 11:27
DX: I95.1 Orthostatic hypotension (principal); I42.8 Other cardiomyopathies; R07.9 Chest pain, unspecified; R53.1 Weakness; Z88.8 Allergy status to other drugs, medicaments and biological substances; Z79.82 Long term (current) use of aspirin; Z79.899 Other long term (current) drug therapy; E86.1 Hypovolemia
CPT/HCPCS: 36415; 71046; 80053; 81001; 82550; 83690; 83880; 84484; 85025; 85610; 85730; 93005; 93010; 99285

== ENCOUNTER → 2020-01-19 | Outpatient (CLI) | payer OTHER ==
[2020-01-19 12:36] LABS: ANION GAP 10 (5-19); BLOOD UREA NITROGEN 14 mg/dL (7-20); CALCIUM 9.5 mg/dL (8.4-10.2); CARBON DIOXIDE 26 mmol/L (22-30); CHLORIDE 100 mmol/L (98-107); GLUCOSE 117 mg/dL (75-110); POTASSIUM 4.3 mmol/L (3.6-5.0)
== END ==
LOC: OD 11:31
PROVIDERS: ATTEND Student in an Organized Health Care Education/Training Program
DX: I50.42 Chronic combined systolic (congestive) and diastolic (congestive) heart failure (principal)
CPT/HCPCS: 36415; 80048; 83735; 83880

== ENCOUNTER → 2020-01-30 | Outpatient (CLI) | payer SELFPAY ==
--- NOTE | 2020-01-30 12:05 | RADIOLOGY REPORT (SQ) ---
EXAM DESCRIPTION: SHOULDER LEFT 2 OR MORE VIEWS IMAGES COMPLETED DATE/TIME: 01/30/2020 11:49 am REASON FOR STUDY: M25.512 PAIN IN LEFT SHOULDER M25.512 PAIN IN LEFT SHOULDER COMPARISON: None. NUMBER OF VIEWS: Three view. TECHNIQUE: Internal rotation, external rotation, and Y view images acquired of the left shoulder. LIMITATIONS: None. FINDINGS: MINERALIZATION: Normal. BONES: No acute fracture. No worrisome bone lesions. No significant osteophytes. GLENOHUMERAL JOINT: No significant findings. ACROMIOCLAVICULAR JOINT: No large osteophytes. SOFT TISSUES: No calcifications. VISUALIZED RIBS, SPINE, AND LUNG: No other significant finding. OTHER: No other significant finding. IMPRESSION: NEGATIVE STUDY OF THE LEFT SHOULDER. NO EXPLANATION FOR PAIN. TECHNICAL DOCUMENTATION: JOB ID: [id number] 2010 [employer]- All Rights Reserved Reading location - IP/workstation name: [email or web address]
== END ==
LOC: RAD 11:27
PROVIDERS: ATTEND Family Medicine
DX: M25.512 Pain in left shoulder (principal)

== ENCOUNTER 2020-03-19 13:04 | Emergency (ER) | payer OTHER ==
--- NOTE | 2020-03-19 13:44 | ER Document Report ---
ED Medical Screen (RME) - General Chief Complaint: Diarrhea Stated Complaint: DIARRHEA Primary Care Provider: HALEY DEVRIES MD [Primary Care Provider] - Follow up as needed Notes: Patient is a 39-year-old female presents emergency department with a chief complaint of diarrhea. Patient reports he has had intermittent diarrhea for the past 3 weeks. States he attempted to see his primary care physician but was told to come to the emergency department. Denies recent travel or sick contacts. Denies specific abdominal pain or vomiting. Patient reports some days he will go without diarrhea and some days he goes about 5 times per day. Denies blood in the stool. Denies recent antibiotic use. Patient also reports rolling his left foot 2 weeks ago. States that he thinks that he might have sprained it but does want to obtain an x-ray to rule out fracture. TRAVEL OUTSIDE OF THE [place] IN LAST 30 DAYS: No - Related Data Allergies/Adverse Reactions: chlorhexidine Allergy (Verified 01/07/20 11:36) Past Medical History - Past Medical History Cardiac Medical History: Reports: Hx Congestive Heart Failure, Hx Hypercholesterolemia, Hx Hypertension Pulmonary Medical History: Reports: Hx Sleep Apnea GI Medical History: Reports: Hx Gastroesophageal Reflux Disease, Hx Hiatal Hernia Past Surgical History: Reports: Hx Tonsillectomy Physical Exam - Vital signs Vitals: Temp Pulse Resp BP Pulse Ox 98.1 F 88 18 101/52 L 97 03/19/20 13:19 03/19/20 13:19 03/19/20 13:19 03/19/20 13:19 03/19/20 13:19 Course - Re-evaluation Re-evalutation: 03/19/20 13:43 Obese abdomen. No acute distress. Will obtain blood work and urinalysis. I have greeted and performed a rapid initial assessment of this patient. A comprehensive ED assessment and evaluation of the patient, analysis of test results and completion of the medical decision making process will be conducted by additional ED providers. - Vital Signs Vital signs: Temp Pulse Resp BP Pulse Ox 98.1 F 88 18 101/52 L 97 03/19/20 13:19 03/19/20 13:19 03/19/20 13:19 03/19/20 13:19 03/19/20 13:19 Doctor's Discharge - Discharge Referrals: HALEY DEVRIES MD [Primary Care Provider] - Follow up as needed
--- NOTE | 2020-03-19 14:06 | RADIOLOGY REPORT (SQ) ---
EXAM DESCRIPTION: FOOT LEFT COMPLETE IMAGES COMPLETED DATE/TIME: 03/19/2020 1:55 pm REASON FOR STUDY: Foot injury 2 weeks ago COMPARISON: LEFT FOOT FILMS 06/29/2019 NUMBER OF VIEWS: Three views. TECHNIQUE: AP, lateral and oblique radiographic images acquired of the left foot. LIMITATIONS: None. FINDINGS: MINERALIZATION: Normal. BONES: No acute fracture or dislocation. No worrisome bone lesions. JOINTS: No effusions. SOFT TISSUES: Diffuse dorsal left foot soft tissue swelling. No foreign body. OTHER: No other significant finding. IMPRESSION: Diffuse dorsal left foot soft tissue swelling. No underlying fracture TECHNICAL DOCUMENTATION: JOB ID: [id number] 2010 [employer]- All Rights Reserved Reading location - IP/workstation name: [email or web address]
[2020-03-19 14:27] LABS: ABSOLUTE BASOPHILS # (AUTO) 0.1 10^3/uL (0.0-0.2); ABSOLUTE EOSINOPHILS # (AUTO) 0.2 10^3/uL (0.0-0.6); ABSOLUTE LYMPHOCYTES (AUTO) 3.4 10^3/uL (0.5-4.7); ABSOLUTE MONOCYTES (AUTO) 1.1 10^3/uL (0.1-1.4); ABSOLUTE NEUT (AUTO) 7.2 10^3/uL (1.7-8.2); BASOPHILS % (AUTO) 1.1 % (0-2); EOSINOPHILS % (AUTO) 1.7 % (0-6); HEMATOCRIT 44.1 % (37.9-51.0); HEMOGLOBIN 15.2 g/dL (13.5-17.0); LYMPHOCYTES % (AUTO) 28.5 % (13-45); MEAN CORPUSCULAR HEMOGLOBIN 30.9 pg (27.0-33.4); MEAN CORPUSCULAR HGB CONC 34.5 g/dL (32.0-36.0); MEAN CORPUSCULAR VOLUME 90 fl (80-97); MONOCYTES % (AUTO) 8.7 % (3-13); PLATELET COUNT 358 10^3/uL (150-450); RED BLOOD COUNT 4.91 10^6/uL (4.35-5.55); RED CELL DISTRIBUTION WIDTH 13.7 % (11.5-14.0); TOTAL CELLS COUNTED % (AUTO) 100 %; WHITE BLOOD COUNT 12.1 10^3/uL (4.0-10.5)
[2020-03-19 14:30] LABS: APPEARANCE,URINE SLIGHTLY-CLOUDY; BILIRUBIN,URINE NEGATIVE (NEGATIVE); COLOR,URINE YELLOW; GLUCOSE, URINE NEGATIVE (NEGATIVE); KETONES,URINE NEGATIVE (NEGATIVE); LEUKOCYTE ESTERASE,URINE NEGATIVE (NEGATIVE); NITRITE,URINE NEGATIVE (NEGATIVE); PROTEIN,URINE 100 mg/dL (NEGATIVE); URINE SPECIFIC GRAVITY 1.017; UROBILINOGEN,URINE NEGATIVE mg/dL (<2.0)
[2020-03-19 14:45] LABS: ALBUMIN 4.3 g/dL (3.5-5.0); ALKALINE PHOSPHATASE 89 U/L (38-126); ANION GAP 11 (5-19); ASPARTATE AMINO TRANSFERASE 27 U/L (17-59); BILIRUBIN,DIRECT 0.2 mg/dL (0.0-0.4); BILIRUBIN,TOTAL 0.9 mg/dL (0.2-1.3); BLOOD UREA NITROGEN 13 mg/dL (7-20); CALCIUM 9.3 mg/dL (8.4-10.2); CARBON DIOXIDE 28 mmol/L (22-30); CHLORIDE 101 mmol/L (98-107); GLUCOSE 99 mg/dL (75-110); POTASSIUM 3.8 mmol/L (3.6-5.0)
[2020-03-19] MEDS ORDERED: LOPERAMIDE HCL 2 MG CAPSULE PO ONE (18:42)
--- NOTE | 2020-03-19 18:43 | ER Document Report ---
ED GI/ - General Chief Complaint: Diarrhea Stated Complaint: DIARRHEA Time Seen by Provider: 03/19/20 17:56 Primary Care Provider: YG PINTO MD [ACTIVE STAFF] - Follow up as needed ERIC BARNES MD [ACTIVE STAFF] - Follow up as needed PORFIRIO NOGUEIRA MD [ACTIVE STAFF] - Follow up as needed HALEY DEVRIES MD [NO LOCAL MD] - Follow up as needed Mode of Arrival: Ambulatory Information source: Patient Notes: Patient presents complaining of diarrhea for the past 3 weeks. Patient states he is gone about 4-5 times today. Patient denies any abdominal tenderness. Patient denies any blood in the stool. Patient states occasionally he will get cramps before the diarrhea and then it resolves. Patient additionally states that he rolled his left foot 2 weeks ago when he was attempting to slam on the brake. TRAVEL OUTSIDE OF THE [place] IN LAST 30 DAYS: No - HPI Patient complains to provider of: Diarrhea. No: Abdominal pain, Vomiting Onset: Other - 3 weeks Timing/Duration: Persistent Quality of pain: No pain Pain Level: Denies Sexual history: Active Associated symptoms: Diarrhea. denies: Blood in stool, Constipation, Fever, Nausea, Urinary hesitancy, Urinary frequency, Urinary retention, Urinary urgency, Vomiting Exacerbated by: Denies Relieved by: Denies Similar symptoms previously: No Recently seen / treated by doctor: No - Related Data Allergies/Adverse Reactions: chlorhexidine Allergy (Verified 01/07/20 11:36) Past Medical History - General Information source: Patient - Social History Smoking Status: Never Smoker Frequency of alcohol use: None Drug Abuse: None Occupation: None Lives with: Family Family History: Reviewed & Not Pertinent - Past Medical History Cardiac Medical History: Reports: Hx Congestive Heart Failure, Hx Hypercholesterolemia, Hx Hypertension Pulmonary Medical History: Reports: Hx Sleep Apnea GI Medical History: Reports: Hx Gastroesophageal Reflux Disease, Hx Hiatal Hernia Past Surgical History: Reports: Hx Tonsillectomy Review of Systems - Review of Systems Constitutional: No symptoms reported. denies: Fever EENT: No symptoms reported Cardiovascular: No symptoms reported. denies: Chest pain Respiratory: No symptoms reported. denies: Cough, Short of breath Gastrointestinal: Diarrhea, Other - Tenderness to rectal area with diarrhea. denies: Abdominal pain, Nausea, Vomiting, Constipation, Black stools, Rectal bleeding Genitourinary: No symptoms reported. denies: Dysuria Male Genitourinary: No symptoms reported Musculoskeletal: Joint pain - Left foot tenderness to the toes. denies: Back pain Skin: No symptoms reported Hematologic/Lymphatic: No symptoms reported Neurological/Psychological: No symptoms reported Physical Exam - Vital signs Vitals: Temp Pulse Resp BP Pulse Ox 98.1 F 88 18 101/52 L 97 03/19/20 13:19 03/19/20 13:19 03/19/20 13:19 03/19/20 13:19 03/19/20 13:19 - General General appearance: Appears well, Alert In distress: None - HEENT Head: Normocephalic, Atraumatic Eyes: Normal Conjunctiva: Normal Nasal: Normal Mouth/Lips: Normal Mucous membranes: Normal Neck: Normal, Supple - Respiratory Respiratory status: No respiratory distress Chest status: Nontender Breath sounds: Normal. No: Rales, Rhonchi, Stridor, Wheezing Chest palpation: Normal - Cardiovascular Rhythm: Regular Heart sounds: S1 appreciated, S2 appreciated - Abdominal Inspection: Morbidly Obese Distension: No distension Bowel sounds: Normal Tenderness: Tender - Mild tenderness to left upper quadrant Organomegaly: No organomegaly - Back Back: Normal, Nontender. No: CVA tenderness - Extremities General upper extremity: Normal inspection, Normal strength General lower extremity: Normal inspection, Tender - Mild tenderness to dorsal aspect of the toes of the left foot, no edema or ecchymosis, Normal strength Foot: Tender - Toes of left foot mildly tender. No: Abrasion, Deformity, Ecchymosis, Edema, Instability, Navicular tenderness, Unable to bear weight - Neurological Neuro grossly intact: Yes Cognition: Normal Lani Coma Scale Eye Opening: Spontaneous Lani Coma Scale Verbal: Oriented Davis Coma Scale Motor: Obeys Commands Lani Coma Scale Total: 15 - Psychological Associated symptoms: Normal affect, Normal mood - Skin Skin Temperature: Warm Skin Moisture: Dry Skin Color: Normal Course - Re-evaluation Re-evalutation: 03/19/20 18:45 Patient presents complaining of diarrhea for the past 3 weeks. Patient denies any abdominal pain or blood in the stool. Patient denies any fever. Patient states he will have mild cramping prior to having bowel movements. Patient states that he contact his primary doctor's office and the staff advised him to come here for evaluation for possible appendicitis or gallbladder problems. Patient specifically without any right upper quadrant or right lower quadrant tenderness and no acute findings on diagnostic evaluation here today aside from mild leukocytosis. Stool specimen was obtained and sent to the lab for culture as well as C. difficile and O&P testing. Patient nontoxic in appearance. Will treat symptomatically at this time pending cultures and encourage outpatient follow-up with pin sorter and bagger. Patient verbalized understanding and is agreeable with discharge plan of care at this time. 03/19/20 18:46 Offered patient crutches mobilization of left foot, patient declines at this time. - Vital Signs Vital signs: Temp Pulse Resp BP Pulse Ox 98.0 F 72 22 H 118/61 96 03/19/20 19:34 03/19/20 19:34 03/19/20 19:34 03/19/20 19:34 03/19/20 19:34 - Laboratory Result Diagrams: 03/19/20 14:02 03/19/20 14:02 Laboratory results interpreted by me: 03/19/20 03/19/20 14:02 14:02 WBC 12.1 H Urine Protein 100 H Urine Blood SMALL H 03/19/20 18:44 Labs- All tests 24 hr 03/19/20 03/19/20 03/19/20 14:02 14:02 14:02 WBC 12.1 H RBC 4.91 Hgb 15.2 Hct 44.1 MCV 90 MCH 30.9 MCHC 34.5 RDW 13.7 Plt Count 358 Lymph % (Auto) 28.5 [place] % (Auto) 8.7 Eos % (Auto) 1.7 Baso % (Auto) 1.1 Absolute Neuts (auto) 7.2 Absolute Lymphs (auto) 3.4 Absolute Monos (auto) 1.1 Absolute Eos (auto) 0.2 Absolute Basos (auto) 0.1 Seg Neutrophils % 60.0 Sodium 140.3 Potassium 3.8 Chloride 101 Carbon Dioxide 28 Anion Gap 11 BUN 13 Creatinine 1.03 Est GFR ( Amer) > 60 Est GFR (MDRD) Non-Af > 60 Glucose 99 Calcium 9.3 Total Bilirubin 0.9 Direct Bilirubin 0.2 Neonat Total Bilirubin Not Reportable Neonat Direct Bilirubin Not Reportable Neonat Indirect Bili Not Reportable AST 27 ALT 45 Alkaline Phosphatase 89 Total Protein 7.0 Albumin 4.3 Urine Color YELLOW Urine Appearance SLIGHTLY-CLOUDY Urine pH 5.0 Ur Specific [place] 1.017 Urine Protein 100 H Urine Glucose (UA) NEGATIVE Urine Ketones NEGATIVE Urine Blood SMALL H Urine Nitrite NEGATIVE Urine Bilirubin NEGATIVE Urine Urobilinogen NEGATIVE Ur Leukocyte Esterase NEGATIVE Urine WBC (Auto) 5 Urine RBC (Auto) 3 U Hyaline Cast (Auto) 4 Squamous Epi Cells Auto 1 Urine Mucus (Auto) MANY Urine Ascorbic Acid NEGATIVE Stool for White Cells 03/19/20 16:30 WBC RBC Hgb Hct MCV MCH MCHC RDW Plt Count Lymph % (Auto) [place] % (Auto) Eos % (Auto) Baso % (Auto) Absolute Neuts (auto) Absolute Lymphs (auto) Absolute Monos (auto) Absolute Eos (auto) Absolute Basos (auto) Seg Neutrophils % Sodium Potassium Chloride Carbon Dioxide Anion Gap BUN Creatinine Est GFR ( Amer) Est GFR (MDRD) Non-Af Glucose Calcium Total Bilirubin Direct Bilirubin Neonat Total Bilirubin Neonat Direct Bilirubin Neonat Indirect Bili AST ALT Alkaline Phosphatase Total Protein Albumin Urine Color Urine Appearance Urine pH Ur Specific [place] Urine Protein Urine Glucose (UA) Urine Ketones Urine Blood Urine Nitrite Urine Bilirubin Urine Urobilinogen Ur Leukocyte Esterase Urine WBC (Auto) Urine RBC (Auto) U Hyaline Cast (Auto) Squamous Epi Cells Auto Urine Mucus (Auto) Urine Ascorbic Acid Stool for White Cells NO WBCs SEEN - Diagnostic Test Radiology reviewed: Reports reviewed Discharge - Discharge Clinical Impression: Diarrhea Qualifiers: Diarrhea type: unspecified type Qualified Code(s): R19.7 - Diarrhea, unspeci fied Sprain of left foot Qualifiers: Encounter type: initial encounter Qualified Code(s): S93.602A - Unspecified sprain of left foot, initial encounter Hemorrhoid Qualifiers: Hemorrhoid type: unspecified Qualified Code(s): K64.9 - Unspecified hemorrhoids Condition: Stable Disposition: HOME, SELF-CARE Instructions: Diarrhea, Nonspecific ([facility]), Hemorrhoids ([facility]), Sprain ([facility]) Additional Instructions: Return immediately for any new or worsening symptoms: Fever, abdominal pain, blood in stool, concerns about dehydration or any other worsening symptoms Followup with your primary care provider, call tomorrow to make a followup appointment Stool cultures are pending at this time, we will call if you need any different treatment Follow-up with a pin sorter and bagger for further evaluation, call Sunday for an appointment Forms: Follow-Up Laboratory Testing Referrals: HALEY DEVRIES MD [NO LOCAL MD] - Follow up as needed YG PINTO MD [ACTIVE STAFF] - Follow up as needed ERIC BARNES MD [ACTIVE STAFF] - Follow up as needed PORFIRIO NOGUEIRA MD [ACTIVE STAFF] - Follow up as needed
[2020-03-19 19:35] VITALS: BP 118/61
[2020-03-19 20:38] LABS: C DIFFICILE GDH NEGATIVE (NEGATIVE)
== END 2020-03-19 20:07 | disposition home or self-care (01) ==
LOC: ER 13:04
DX: R19.7 Diarrhea, unspecified (principal); R10.812 Left upper quadrant abdominal tenderness; S93.602A Unspecified sprain of left foot, initial encounter; X50.9XXA Other and unspecified overexertion or strenuous movements or postures, initial encounter; Y93.89 Activity, other specified; K64.9 Unspecified hemorrhoids; D72.829 Elevated white blood cell count, unspecified; I10 Essential (primary) hypertension; Z88.8 Allergy status to other drugs, medicaments and biological substances
CPT/HCPCS: 36415; 81001; 85025; 87045; 87070; 87177; 87205; 87324; 87449; 89055; 99284

== ENCOUNTER → 2020-03-19 | Outpatient (CLI) | payer OTHER ==
[2020-03-19 14:34] LABS: ALBUMIN 4.3 g/dL (3.5-5.0); ALKALINE PHOSPHATASE 87 U/L (38-126); ANION GAP 12 (5-19); ASPARTATE AMINO TRANSFERASE 28 U/L (17-59); BILIRUBIN,DIRECT 0.4 mg/dL (0.0-0.4); BLOOD UREA NITROGEN 12 mg/dL (7-20); CALCIUM 9.1 mg/dL (8.4-10.2); CARBON DIOXIDE 27 mmol/L (22-30); CHLORIDE 100 mmol/L (98-107); GLUCOSE 151 mg/dL (75-110); POTASSIUM 3.7 mmol/L (3.6-5.0)
== END ==
LOC: OD 12:43
PROVIDERS: ATTEND Student in an Organized Health Care Education/Training Program
DX: I50.42 Chronic combined systolic (congestive) and diastolic (congestive) heart failure (principal)
CPT/HCPCS: 36415; 80053; 83735; 83880

== ENCOUNTER → 2020-04-02 | Outpatient (CLI) | payer OTHER ==
[2020-04-02 17:30] LABS: ABSOLUTE BASOPHILS # (AUTO) 0.1 10^3/uL (0.0-0.2); ABSOLUTE EOSINOPHILS # (AUTO) 0.2 10^3/uL (0.0-0.6); ABSOLUTE LYMPHOCYTES (AUTO) 3.5 10^3/uL (0.5-4.7); ABSOLUTE MONOCYTES (AUTO) 0.9 10^3/uL (0.1-1.4); ABSOLUTE NEUT (AUTO) 6.9 10^3/uL (1.7-8.2); EOSINOPHILS % (AUTO) 1.7 % (0-6); HEMOGLOBIN 15.4 g/dL (13.5-17.0); LYMPHOCYTES % (AUTO) 30.6 % (13-45); MEAN CORPUSCULAR HEMOGLOBIN 31.4 pg (27.0-33.4); MEAN CORPUSCULAR HGB CONC 35.7 g/dL (32.0-36.0); MEAN CORPUSCULAR VOLUME 88 fl (80-97); MONOCYTES % (AUTO) 7.6 % (3-13); PLATELET COUNT 349 10^3/uL (150-450); RED BLOOD COUNT 4.89 10^6/uL (4.35-5.55); RED CELL DISTRIBUTION WIDTH 13.6 % (11.5-14.0); SEGMENTED NEUTROPHILS % (AUTO) 59.1 % (42-78); TOTAL CELLS COUNTED % (AUTO) 100 %; WHITE BLOOD COUNT 11.6 10^3/uL (4.0-10.5)
[2020-04-02 17:49] LABS: ALBUMIN 4.1 g/dL (3.5-5.0); ALKALINE PHOSPHATASE 100 U/L (38-126); ANION GAP 10 (5-19); ASPARTATE AMINO TRANSFERASE 25 U/L (17-59); BILIRUBIN,DIRECT 0.2 mg/dL (0.0-0.4); BILIRUBIN,TOTAL 0.7 mg/dL (0.2-1.3); BLOOD UREA NITROGEN 11 mg/dL (7-20); CALCIUM 9.4 mg/dL (8.4-10.2); CARBON DIOXIDE 29 mmol/L (22-30); CHLORIDE 99 mmol/L (98-107); GLUCOSE 92 mg/dL (75-110); POTASSIUM 4.1 mmol/L (3.6-5.0); TOTAL PROTEIN 6.7 g/dL (6.3-8.2)
== END ==
LOC: OD 16:44
DX: R19.7 Diarrhea, unspecified (principal)
CPT/HCPCS: 36415; 80053; 85025; 87045; 87177; 87205

== ENCOUNTER → 2020-05-01 | Outpatient (CLI) | payer OTHER ==
[2020-05-01 12:31] LABS: ANION GAP 10 (5-19); BLOOD UREA NITROGEN 14 mg/dL (7-20); CALCIUM 9.6 mg/dL (8.4-10.2); CARBON DIOXIDE 28 mmol/L (22-30); CHLORIDE 102 mmol/L (98-107); GLUCOSE 124 mg/dL (75-110); POTASSIUM 3.9 mmol/L (3.6-5.0)
== END ==
LOC: OD 11:15
PROVIDERS: ATTEND Student in an Organized Health Care Education/Training Program
DX: I50.9 Heart failure, unspecified (principal)
CPT/HCPCS: 36415; 80048; 83735; 83880